=== PATIENT | female | born 1945 | race Caucasian/White ===

== ENCOUNTER 2022-10-16 16:31 | Inpatient (IN) | payer OTHER ==
[~2022-10-16] VITALS: Ht 167.6 cm; Wt 69.9 kg
[2022-10-16 16:31] VITALS: BP_SYST 91
--- NOTE | 2022-10-16 16:31 | NUR ---
Placed in room 02 . Placed on color television console monitor, blood pressure machine and pulse oximeter. To gown for exam. Side rails up. Report given to LIZBETH MORALES
--- NOTE | 2022-10-16 16:40 | NUR ---
PT BIBA AWAKE AND CONFUSED AOX1. [facility]UE TO BEING ALTRERD AND LOW SATURATION AT 88% RA. PT GIVEN NS 1000ML BY PARAMEDICS.
--- NOTE | 2022-10-16 16:42 | NUR ---
ER at bedside examining patient.
--- NOTE | 2022-10-16 16:45 | NUR ---
# 18 gauge angiocath placed to RAC. Use of asceptic technique. Opsite placed over site. Blood return noted. Blood AND CULTURES for lab drawn from site. Flushed with 10 cc of normal saline. No evidence of infiltration noted. Patient tolerated well.
--- NOTE | 2022-10-16 16:50 | NUR ---
MRSA, INFLUENZA AND COVID SWABS OBTAINED AND SENT TO LAB
--- NOTE | 2022-10-16 16:51 | NUR ---
RT AT BEDSIDE FOR ABG.
--- NOTE | 2022-10-16 16:53 | NUR ---
HUMAN SERVICE TECHNICIAN AT BEDSIDE FOR CHEST RAY
--- NOTE | 2022-10-16 17:09 | NUR ---
# 16 FR Mueller catheter with use of sterile technique. Immediate return of 100 cc CLOUDY JOVANNI urine noted. Bedside drainage bag placed below level of bladder. Urine sample collected and sent to lab. Pt tolerated procedure WELL Patient arrived with mueller in place, changed due to standard of practice prior to admission. Patient unable to toilet self.
[2022-10-16 17:12] LABS: BASOPHILS % (AUTO) 0.4 % (0.0-2.0); EOSINOPHILS % (AUTO) 0.1 % (0.0-4.0); LYMPHOCYTES # (AUTO) 0.7 K/uL (1.0-5.5); LYMPHOCYTES % (AUTO) 6.2 % (20.5-51.5); MONOCYTES # (AUTO) 1.3 K/uL (0.0-1.0)
[2022-10-16] MEDS ORDERED: IPRATROPIUM/ALBUTEROL SULFATE 3 ML AMPUL.NEB (DUONEB) INH ONE (17:15)
[2022-10-16 17:25] LABS: CALCIUM 8.1 mg/dL (8.4-11.0); CHLORIDE 94 mmol/L (98-107); CREATININE 1.67 mg/dL (0.55-1.30); GLUCOSE 120 mg/dL (70-99); UREA NITROGEN, BLOOD 55 mg/dL (8-21)
[2022-10-16] MEDS ORDERED: EPOE1VIA13 SQ (17:28)
[2022-10-16] MEDS ORDERED: ALBU2.5V7 INH (17:28)
[2022-10-16] MEDS ORDERED: DIA250 PO (17:28)
[2022-10-16] MEDS ORDERED: DOCU100T10 PO (17:28)
[2022-10-16] MEDS ORDERED: ACET325T39 PO (17:28)
[2022-10-16] MEDS ORDERED: DILT30TA3 PO (17:28)
[2022-10-16] MEDS ORDERED: APIX5TAB PO (17:28)
[2022-10-16 17:30] LABS: INR 1.2 (0.8-1.2)
[2022-10-16 17:32] LABS: BASOPHILS # (AUTO) 0.1 K/uL (0.0-0.2); HEMATOCRIT 37.5 % (36-48); HEMOGLOBIN 11.3 g/dL (12.0-16.0); MEAN CORPUSCULAR HEMOGLOBIN 26 pg (27-31); MEAN CORPUSCULAR HGB CONC 30 % (32-36); MEAN CORPUSCULAR VOLUME 87 fL (79.0-98.0); MONOCYTES % (AUTO) 10.5 % (1.7-9.3); NEUTROPHILS # (AUTO) 9.9 K/uL (1.8-7.7); NEUTROPHILS % (AUTO) 82.8 % (40.0-70.0); PLATELET COUNT (AUTO) 358 K/uL (130-430); RED BLOOD CELL COUNT(AUTO) 4.33 MIL/uL (4.2-6.2); RED CELL DISTRIBUTION WIDTH 24.3 % (9.0-15.0)
[2022-10-16 17:35] LABS: ALANINE AMINOTRANSFERASE 13 U/L (12-78); ALBUMIN 2.1 g/dL (3.4-4.8); ANION GAP 5 (5-15); ASPARTATE AMINOTRANSFERASE 12 U/L (10-37); PHOSPHORUS 5.5 mg/dL (2.7-4.5); TOTAL BILIRUBIN 0.6 mg/dL (0.0-1.0)
[2022-10-16 17:44] LABS: BILIRUBIN,URINE NEGATIVE (NEGATIVE); BLOOD, URINE 3+ (NEGATIVE); CLARITY/URINE CLOUDY (CLEAR); COLOR,URINE YELLOW (YELLOW); GLUCOSE,URINE NEGATIVE (NEGATIVE); KETONES,URINE TRACE (NEGATIVE); LEUKOCYTE ESTERASE ,URINE 2+ (NEGATIVE); NITRITE, URINE POSITIVE (NEGATIVE); PROTEIN URINE 2+ (NEGATIVE)
[2022-10-16] MEDS ORDERED: POTA20LI25 PO (17:54)
[2022-10-16] MEDS ORDERED: METO25TA3 PO (17:54)
[2022-10-16] MEDS ORDERED: MOM PO (17:54)
[2022-10-16 18:12] LABS: BACTERIA,URINE MANY /HPF (None Seen); RBC,URINE >100 /HPF (0-3); URINE AMORPHOUS URATE 2+ /HPF (None Seen); WBC,URINE >100 /HPF (0-3)
[2022-10-16 18:13] LABS: MUCUS,URINE None Seen /LPF (None Seen)
[2022-10-16] MEDS ORDERED: SPIR25TA PO (18:14)
[2022-10-16] MEDS ORDERED: SACU1TAB PO (18:14)
[2022-10-16] MEDS ORDERED: SENN8.6T19 PO (18:14)
--- NOTE | 2022-10-16 18:14 | NUR ---
Medication reconciliation completed with information provided by BRENNEN GAN. Any prior medication reconciliation on file was reviewed and corrected.
[2022-10-16] MEDS ORDERED: VANCOMYCIN HCL 1,000 MG in NS 250 ML IV ONE (18:15)
[2022-10-16] MEDS ORDERED: PIPERACILLIN/TAZO 3.375 GM in NS 50 ML IV ONE (18:15)
[2022-10-16] MEDS ORDERED: NACL 0.9% 1,000 ML IV ONE (19:00)
--- NOTE | 2022-10-16 19:30 | NUR ---
REPORT GIVEN PACHECO, PT STABLE.
--- NOTE | 2022-10-16 19:33 | NUR ---
patient is on bipap resting i bed. son is at bedside. pt is on the monitor
--- NOTE | 2022-10-16 19:46 | NUR ---
Admit bed requested Patient will be admitted to care of . Admitted to ICU unit. Diagnosis SEPSIS AND ACUTE RESPIRATORY FAILURE Inpatient (Yes or No) Y Observation (Yes or No) N Orientation concerns or request close to nursing station (Yes or No) N Covid Status NEG On vent or bipap BIPAP Isolation requirements N Needs a sitter N From Home (Yes or if No enter name of facility) [facility] Requires Dialysis (Yes or No) N Med Rec Completed (Yes of No) Y
[2022-10-16] MEDS ORDERED: VANCOMYCIN HCL 1000 MG/VIAL IV ONE (20:41)
[2022-10-16] MEDS ORDERED: PIPERACILLIN/TAZOBACTAM 3.375 GM/VIAL (ZOSYN) IV ONE (20:58)
[2022-10-16] MEDS ORDERED: CEFEPIME 1 GM in D5W 50 ML IV ONE (21:00)
[2022-10-16] MEDS ORDERED: NOREPINEPHRINE 4 MG/4 ML VIAL IV ONE (21:04)
--- NOTE | 2022-10-16 21:10 | NUR ---
STARTED LEVOPHED 0.1 MCG/KG/MIN FOR BP 78/46 HR 94.
[2022-10-16] MEDS: NOREPINEPHRINE BITARTRATE 4 MG in NS 246 ML IV PRN (21:12)
[2022-10-16 21:34] VITALS: BP_SYST 79
--- NOTE | 2022-10-16 21:42 | NUR ---
ADMIT NOTE Received pt from ER to the floor with a diagnosis of SEPSIS Respiratory failure. Admission process initiated. patient oriented to pain management, safety and call light- verbally Responsive skin dry warm procedures explained chest movement shallow also symmetrical / .
[2022-10-16] MEDS ORDERED: MILK OF MAGNESIA 30 ML UDC PO PRN (22:30)
[2022-10-16] MEDS ORDERED: LevALBUTEROL HCL 1.25 MG/0.5 ML *CONC.* VIAL.NEB (XOPENEX CONC.) INH PRN (22:30)
[2022-10-16] MEDS: D5NS 1,000 ML IV SCH (22:56)
--- NOTE | 2022-10-16 23:17 | NUR ---
DR NAN KUHN here and at the bedside New ORDERS OBTAINED IVF stared as ordered .
--- NOTE | 2022-10-16 23:31 | NUR ---
LEVOPHED IV Drip @ 0.07 mg kg minute BP 117/64 HR 117 02 SAT 96 %
[2022-10-16 23:37] VITALS: BP_SYST 133
[2022-10-17] VITALS (25 sets, daily range): BP systolic 107–136
--- NOTE | 2022-10-17 00:11 | NUR ---
CONSULTATION PAGED/CALLED Reason for Consultation: Respiratory Failure Person Who was Notified: Shanon Consulting Physician: Dr Nair Ground Host/Hostess Specialty: Pulmonary Ordering Physician: Dr Nina
--- NOTE | 2022-10-17 00:18 | NUR ---
CONSULTATION PAGED/CALLED Reason for Consultation: AFib Person Who was Notified: Shanon Consulting Physician: Dr Rosado Primer Inspector Specialty: Cardiology Ordering Physician: Dr Nina
[2022-10-17] MEDS ORDERED: METOPROLOL TARTRATE 5 MG/5 ML VIAL IVP PRN ×2 (00:30→03:30)
[2022-10-17] MEDS ORDERED: IPRATROPIUM/ALBUTEROL SULFATE 3 ML AMPUL.NEB (DUONEB) ONE (00:59)
[2022-10-17] MEDS: LevALBUTEROL HCL 1.25 MG/0.5 ML *CONC.* VIAL.NEB (XOPENEX CONC.) INH SCH ×3 (01:01→14:19)
--- NOTE | 2022-10-17 02:49 | NUR ---
STOOL COLLECTED & SENT TO LAB .
[2022-10-17 05:26] LABS: BASOPHILS % (AUTO) 0.5 % (0.0-2.0); EOSINOPHILS % (AUTO) 0.2 % (0.0-4.0); HEMATOCRIT 35.7 % (36-48); HEMOGLOBIN 11.2 g/dL (12.0-16.0); LYMPHOCYTES # (AUTO) 0.6 K/uL (1.0-5.5); LYMPHOCYTES % (AUTO) 5.8 % (20.5-51.5); MEAN CORPUSCULAR HEMOGLOBIN 27 pg (27-31); MEAN CORPUSCULAR HGB CONC 31 % (32-36); MEAN CORPUSCULAR VOLUME 86 fL (79.0-98.0); MONOCYTES # (AUTO) 1.3 K/uL (0.0-1.0); MONOCYTES % (AUTO) 12.1 % (1.7-9.3); NEUTROPHILS # (AUTO) 8.5 K/uL (1.8-7.7); NEUTROPHILS % (AUTO) 81.4 % (40.0-70.0); PLATELET COUNT (AUTO) 338 K/uL (130-430); RED BLOOD CELL COUNT(AUTO) 4.16 MIL/uL (4.2-6.2); RED CELL DISTRIBUTION WIDTH 23.7 % (9.0-15.0); WHITE BLOOD COUNT (AUTO) 10.4 K/uL (4.8-10.8)
[2022-10-17 06:08] LABS: ANION GAP 5 (5-15); CALCIUM 8.2 mg/dL (8.4-11.0); CHLORIDE 95 mmol/L (98-107); CREATININE 1.25 mg/dL (0.55-1.30); GLUCOSE 131 mg/dL (70-99); UREA NITROGEN, BLOOD 52 mg/dL (8-21)
--- NOTE | 2022-10-17 07:30 | NUR ---
Received pt from [facility] RN with a diagnosis of SEPSIS Respiratory failure. Pt remains on BiPAP 15/7, rate 20, levophed drip @ 0.07, patient oriented to pain management, safety and call light- verbally Responsive skin dry warm procedures explained chest movement shallow also symmetrical
[2022-10-17] MEDS: METOPROLOL SUCCINATE 25 MG TAB.SR.24H (TOPROL XL) PO SCH (07:50)
[2022-10-17] MEDS: SACUBITRIL/VALSARTAN 24 MG-26 MG 1 TABLET PO SCH ×2 (07:50→20:10)
[2022-10-17] MEDS: SPIRONOLACTONE 25 MG TABLET (ALDACTONE) PO SCH (07:50)
[2022-10-17] MEDS: acetaZOLAMIDE 250 MG TABLET (DIAMOX) PO SCH (07:51)
[2022-10-17] MEDS: APIXABAN 2.5 MG TABLET PO SCH ×2 (07:51→20:18)
[2022-10-17] MEDS: DOCUSATE SODIUM 100 MG CAPSULE PO SCH ×2 (07:51→20:09)
[2022-10-17] MEDS: DILTIAZEM HCL 30 MG TABLET PO SCH ×3 (07:51→20:11)
[2022-10-17] MEDS: POTASSIUM CHLORIDE 20 MEQ/PKT PACKET PO SCH (07:58)
[2022-10-17] MEDS: D5NS 1,000 ML IV SCH ×3 (08:15→17:56)
[2022-10-17] MEDS: CEFEPIME 1 GM in D5W 50 ML IV SCH ×2 (08:25→20:09)
[2022-10-17] MEDS: NOREPINEPHRINE BITARTRATE 4 MG in NS 246 ML IV PRN ×2 (09:33→17:57)
[2022-10-17] MEDS ORDERED: FUROSEMIDE 20 MG/2 ML VIAL IVP ONE (15:00)
--- NOTE | 2022-10-17 15:33 | NUR ---
RT NOTES took pt off the bipap to 5L oxymizer to give pt a break per dr's order. Pt is alert, communicating appropriately. educated on O2, deep breathing and plan to put bipap back on after half an hour.
[2022-10-17] MEDS: EPOETIN ALFA 10,000 UNITS/ML VIAL SUBCUT SCH (15:58)
--- NOTE | 2022-10-17 17:16 | NUR ---
RT NOTES Pt back on bipap.
--- NOTE | 2022-10-17 19:15 | NUR ---
change of shift.pt.presents isolation status.contact;mrsa;nares.pt.presents o2 therapy:bi-pap;settings;i/e;17/5,r/r;20, fio2%:40%. o2-sat%=93%.pt.presents picc line location rt.bicept intact;patent.iv fluids/levophed-drip infusing.levophed drip;rate: 0.07mcq/kg/min:rate;18ml/hr.pt.presents mueller cath intact;patent.call light w/in access of thed pt.
--- NOTE | 2022-10-17 20:00 | NUR ---
pt.assessed.v/s assessed values note 02-sat%=94%,h/r wnl.picc line intact.iv fluids/levophed drip infusing.note b/p status wnl.no c/o pain,nausea.pt.had requested removal of bi-pap mask.o2 converted to oximizer.to note o2-sat%.mueller cath intact pt.assessed for cleanliness pt.repositioned.call light placed w/in access of the pt.
[2022-10-17] MEDS: SENNOSIDES 8.6 MG TABLET PO SCH (20:13)
--- NOTE | 2022-10-17 21:00 | NUR ---
2100p medications administered required crushed mixture pudding.pt.capable to ingest the po medications w/out difficulty. bi-pap resumed.note o2-sat%decreased to mid-upper 80's.
--- NOTE | 2022-10-17 22:00 | NUR ---
pt.assessed.v/s assessed values wnl.note h/r,note 02-sat%=100%.picc line intact iv fluids/drip levophed infusing. per flacc pain mgx pt.absent facial grimaces/body posturing.pt.assessed for cleanliness pt.repositioned.call light placed w/in access of the pt.
[2022-10-18] VITALS (25 sets, daily range): BP systolic 101–137
--- NOTE | 2022-10-18 | NUR ---
pt.assessed.v/s assessed values wnl.note 02-sat%=98%.h/r status wnl.picc line intact.iv fluids/drip:levophed infusing,levophed drip rate decreased to 0.04mcq/kg/min.mueller cath intact;patent.per flacc pain mgx pt.absent facial grimaces/body posturing.pt.assessed for cleanliness pt.repositioned.call light placed w/in access of the pt.
--- NOTE | 2022-10-18 02:00 | NUR ---
pt.assessed.v/a assessed values wnl.note h/r status wnl.b/p status wnl.drip levophed d/c.picc line intact iv fluids infusing.mueller cath intact;patent.no c/o pain,nausea.pt.assessed for cleanliness pt.repositioned.call light placed w/in access of the pt.
--- NOTE | 2022-10-18 04:00 | NUR ---
pt.assessed.v/s assessed values wnl.note h/r,b/p status.picc line intact;patent iv fluids infusing.mueller cath intact;patent. per flacc pain mgx pt.absent facial grimace/body posturing.pt.assessed forf cleanliness pt.repositioned.call light placed w/in access of the pt.
[2022-10-18] MEDS: D5NS 1,000 ML IV SCH (04:04)
[2022-10-18 05:13] LABS: BASOPHILS % (AUTO) 0.5 % (0.0-2.0); EOSINOPHILS % (AUTO) 0.6 % (0.0-4.0); HEMATOCRIT 34.2 % (36-48); HEMOGLOBIN 10.5 g/dL (12.0-16.0); LYMPHOCYTES # (AUTO) 0.6 K/uL (1.0-5.5); LYMPHOCYTES % (AUTO) 7.8 % (20.5-51.5); MEAN CORPUSCULAR HEMOGLOBIN 27 pg (27-31); MEAN CORPUSCULAR HGB CONC 31 % (32-36); MEAN CORPUSCULAR VOLUME 86 fL (79.0-98.0); MONOCYTES # (AUTO) 0.9 K/uL (0.0-1.0); MONOCYTES % (AUTO) 11.3 % (1.7-9.3); NEUTROPHILS # (AUTO) 6.3 K/uL (1.8-7.7); NEUTROPHILS % (AUTO) 79.8 % (40.0-70.0); PLATELET COUNT (AUTO) 305 K/uL (130-430); RED BLOOD CELL COUNT(AUTO) 3.97 MIL/uL (4.2-6.2); RED CELL DISTRIBUTION WIDTH 24.1 % (9.0-15.0); WHITE BLOOD COUNT (AUTO) 7.9 K/uL (4.8-10.8)
[2022-10-18] MEDS: LevALBUTEROL HCL 1.25 MG/0.5 ML *CONC.* VIAL.NEB (XOPENEX CONC.) INH SCH ×5 (05:52→19:30)
[2022-10-18 06:01] LABS: ALANINE AMINOTRANSFERASE 14 U/L (12-78); ALBUMIN 1.7 g/dL (3.4-4.8); ANION GAP 0 (5-15); ASPARTATE AMINOTRANSFERASE 22 U/L (10-37); CALCIUM 7.7 mg/dL (8.4-11.0); CHLORIDE 105 mmol/L (98-107); CREATININE 0.71 mg/dL (0.55-1.30); GLUCOSE 117 mg/dL (70-99); THYROID STIMULATING HORMONE 5.29 uIu/mL (0.34-4.82); TOTAL BILIRUBIN 0.4 mg/dL (0.0-1.0); UREA NITROGEN, BLOOD 38 mg/dL (8-21)
--- NOTE | 2022-10-18 06:02 | NUR ---
pt.assessed.v/s assessed values wnl.note h/r,b/p status.no c/o pain,nausea.picc line intact;patent,mueller cath intact;patent. pt.assessed for cleanliness pt.repositioned.call light placed w/in access of the pt.
--- NOTE | 2022-10-18 07:27 | NUR ---
RT NOTES Found pt off bipap, on 8L oxymizer, tachypneic but not distressed.
--- NOTE | 2022-10-18 07:30 | NUR ---
Received pt from [facility] RN with a diagnosis of SEPSIS Respiratory failure. Pt remains on Oximizer at 8L, patient oriented to person, pain management, safety and call light- verbally Responsive skin dry warm procedures explained chest movement shallow also symmetrical
--- NOTE | 2022-10-18 07:45 | NUR ---
RT Noted oximizer, decreased to 5L, ABG at 1000
[2022-10-18] MEDS: DOCUSATE SODIUM 100 MG CAPSULE PO SCH ×2 (08:20→20:21)
[2022-10-18] MEDS: SPIRONOLACTONE 25 MG TABLET (ALDACTONE) PO SCH (08:20)
[2022-10-18] MEDS: DILTIAZEM HCL 30 MG TABLET PO SCH ×3 (08:21→20:21)
[2022-10-18] MEDS: acetaZOLAMIDE 250 MG TABLET (DIAMOX) PO SCH (08:21)
[2022-10-18] MEDS: METOPROLOL SUCCINATE 25 MG TAB.SR.24H (TOPROL XL) PO SCH (08:21)
[2022-10-18] MEDS: POTASSIUM CHLORIDE 20 MEQ/PKT PACKET PO SCH (08:21)
[2022-10-18] MEDS: SACUBITRIL/VALSARTAN 24 MG-26 MG 1 TABLET PO SCH ×2 (08:21→20:21)
[2022-10-18] MEDS: APIXABAN 2.5 MG TABLET PO SCH ×2 (08:22→20:20)
[2022-10-18] MEDS: CEFEPIME 1 GM in D5W 50 ML IV SCH ×2 (08:23→20:17)
--- NOTE | 2022-10-18 09:54 | NUR ---
Dietitian Recommendations * Continue leno, if BACKER UP agreeable * Swallow evaluation * Ordered: Demetris ALBA, MPH, RD Please refer to RD Assessment for further details. Thanks! Addendum: 10/18/22 at [address] Amended: Links added.
--- NOTE | 2022-10-18 10:37 | NUR ---
RT NOTES Per ABG result, pt back on bipap with same settings
--- NOTE | 2022-10-18 11:10 | NUR ---
RT NOTES Per Rn, Dr Nair received ABG results, aware that pt is back on bipap with same settings. Orders for ABG in 3 hours.
--- NOTE | 2022-10-18 12:40 | NUR ---
RT NOTES @1230 per mammography technician, Pt pulled bipap mask off, RN put it back on without difficulties. Pt was reeducated on importance of keep bipap on. Pt appears to understand.
[2022-10-18] MEDS ORDERED: POTASSIUM CHLORIDE 20 MEQ/PKT PACKET PO ONE (12:45)
[2022-10-18] MEDS: KCL 20 mEq in D5NS 1000 mL 1,000 ML IV SCH ×2 (14:38→23:40)
--- NOTE | 2022-10-18 15:15 | NUR ---
RT NOTES RN took pt off bipap and placed on 5L oxymizer. No adverse reactions.
--- NOTE | 2022-10-18 16:32 | NUR ---
RT NOTES Pt remains on 5L oxymizer, just finished swallow eval with speech therapist. No distress noted. pt is awake.
--- NOTE | 2022-10-18 16:50 | NUR ---
ST EVALUATION COMPLETED. ST TX NOT INDICATED AT THIS TIME. RECOMMEND PO DIET OF PUREE AND THIN LIQUIDS. 1:1 SUPERVISION AND FULL ASPIRATION PRECAUTIONS
[2022-10-18] MEDS ORDERED: FUROSEMIDE 20 MG/2 ML VIAL IVP ONE (17:45)
--- NOTE | 2022-10-18 19:00 | NUR ---
Opening notes Received report from endorsing morning shift RN for continuity of care. Patient is lying in bed with IVF D5NS with KCL 20mEq @ 100 mL/hr. Patient's vital signs blood pressure 117/48, heart rate 90, respirations 32, and SPO2 91% on 5L oxymizer. Leyva catheter is in place draining to gravity. Bed is locked and in lowest position, fall and safety precautions is in place.
[2022-10-18] MEDS: SENNOSIDES 8.6 MG TABLET PO SCH (20:21)
--- NOTE | 2022-10-18 21:16 | NUR ---
pt not tolerating BI-PAP, RECIEVED CALL FROM RN, PT ON ROOM AIR WHEN I ENTERED THE ROOM SATURATING 85%, PLACED PT BACK ON 5L OXIMIZER FOR PT COMFORT. PT IS TOLERATING THE CHANGE SATURATION MAINTAINING AT 90% OR ABOVE, WILL CONTINUE TO MONITOR
[2022-10-19] VITALS (23 sets, daily range): BP systolic 99–143
[2022-10-19] MEDS: LevALBUTEROL HCL 1.25 MG/0.5 ML *CONC.* VIAL.NEB (XOPENEX CONC.) INH SCH ×2 (01:18→19:00)
[2022-10-19 05:00] LABS: HEMOGLOBIN 11.1 g/dL (12.0-16.0); MEAN CORPUSCULAR HEMOGLOBIN 27 pg (27-31); MEAN CORPUSCULAR HGB CONC 31 % (32-36); MEAN CORPUSCULAR VOLUME 89 fL (79.0-98.0); PLATELET COUNT (AUTO) 348 K/uL (130-430); RED BLOOD CELL COUNT(AUTO) 4.06 MIL/uL (4.2-6.2); RED CELL DISTRIBUTION WIDTH 24.7 % (9.0-15.0)
[2022-10-19 05:26] LABS: ALANINE AMINOTRANSFERASE 14 U/L (12-78); ALBUMIN 1.7 g/dL (3.4-4.8); ANION GAP 4 (5-15); ASPARTATE AMINOTRANSFERASE 22 U/L (10-37); CALCIUM 8.1 mg/dL (8.4-11.0); CHLORIDE 109 mmol/L (98-107); CREATININE 0.79 mg/dL (0.55-1.30); GLUCOSE 141 mg/dL (70-99); TOTAL BILIRUBIN 0.2 mg/dL (0.0-1.0); UREA NITROGEN, BLOOD 32 mg/dL (8-21)
--- NOTE | 2022-10-19 05:34 | NUR ---
RT NOTES ATTEMPTED 0550 ORDERED ABG, UNABLE TO OBTAIN, WILL HAVE ONCOMING RT ATTEMPT
--- NOTE | 2022-10-19 05:35 | NUR ---
RT NOTES PER PT REQUEST REMOVED BI-PAP, PLACED PT ON A 5L OXIMIZER, PT IS TOLERATING WELL
--- NOTE | 2022-10-19 08:11 | NUR ---
SPOKE WITH ROSA REQUESTING ORDERS FROM DR. CHAVES FOR CRITICAL ABG RESULTS.
[2022-10-19] MEDS: CEFEPIME 1 GM in D5W 50 ML IV SCH ×2 (08:46→20:25)
[2022-10-19] MEDS: KCL 20 mEq in D5NS 1000 mL 1,000 ML IV SCH ×2 (08:49→20:24)
[2022-10-19] MEDS ORDERED: FUROSEMIDE 20 MG/2 ML VIAL IVP SCH (09:00)
[2022-10-19] MEDS: SPIRONOLACTONE 25 MG TABLET (ALDACTONE) PO SCH (09:30)
[2022-10-19] MEDS: acetaZOLAMIDE 250 MG TABLET (DIAMOX) PO SCH (09:30)
[2022-10-19] MEDS: DOCUSATE SODIUM 100 MG CAPSULE PO SCH ×2 (09:30→21:00)
[2022-10-19] MEDS: DILTIAZEM HCL 30 MG TABLET PO SCH ×3 (09:31→21:00)
[2022-10-19] MEDS: APIXABAN 2.5 MG TABLET PO SCH ×2 (09:32→21:00)
[2022-10-19] MEDS: METOPROLOL SUCCINATE 25 MG TAB.SR.24H (TOPROL XL) PO SCH (09:33)
[2022-10-19] MEDS: SACUBITRIL/VALSARTAN 24 MG-26 MG 1 TABLET PO SCH ×2 (09:33→21:00)
[2022-10-19] MEDS: POTASSIUM CHLORIDE 20 MEQ/PKT PACKET PO SCH (11:30)
[2022-10-19 13:18] LABS: BAND % (MANUAL) 1 % (0-6); BASOPHILS % (MANUAL) 0 % (0-2); EOSINOPHILS % (MANUAL) 0 % (0-7); LYMPHOCYTES % (MANUAL) 9 % (20-46); MONOCYTES % (MANUAL) 4 % (0-11)
[2022-10-19] MEDS: ALBUMIN HUMAN 25% 50 ML IV SCH ×3 (15:11→23:58)
--- NOTE | 2022-10-19 15:13 | NUR ---
SPOKE WITH PRAMOD REQUESTING ORDERS FROM DR. CHAVES
--- NOTE | 2022-10-19 16:58 | NUR ---
SPOKE WITH JASPER REQUESTING ORDERS FROM DR. SINGER, WAS TOLD DR. STALLINGS.
--- NOTE | 2022-10-19 17:10 | NUR ---
1700 PATIENT'S FAMILY AT BEDSIDE CONCERNED OF PATIENTS NUTRITION AND PAIN MANAGEMENT. FOLLOWED UP WITH DR. TERRELL. NEW ORDERS PLACED.
[2022-10-19] MEDS: EPOETIN ALFA 10,000 UNITS/ML VIAL SUBCUT SCH (17:14)
[2022-10-19] MEDS ORDERED: NALOXONE HCL 0.4 MG/ML AMP (NARCAN) IVP PRN (17:15)
[2022-10-19] MEDS ORDERED: *TPN PER PHARMACY XX PRN (17:15)
[2022-10-19] MEDS: MORPHINE 2 MG/ML INJ. SYRINGE IVP PRN ×2 (17:21→20:27)
[2022-10-19] MEDS: FUROSEMIDE 20 MG/2 ML VIAL IVP SCH (20:25)
[2022-10-19] MEDS: SENNOSIDES 8.6 MG TABLET PO SCH (21:00)
[2022-10-20] VITALS (24 sets, daily range): BP systolic 108–162
[2022-10-20] MEDS: LevALBUTEROL HCL 1.25 MG/0.5 ML *CONC.* VIAL.NEB (XOPENEX CONC.) INH SCH ×4 (02:29→19:14)
[2022-10-20 05:04] LABS: HEMOGLOBIN 10.1 g/dL (12.0-16.0); MEAN CORPUSCULAR HEMOGLOBIN 27 pg (27-31); MEAN CORPUSCULAR HGB CONC 31 % (32-36); MEAN CORPUSCULAR VOLUME 89 fL (79.0-98.0); PLATELET COUNT (AUTO) 286 K/uL (130-430); RED BLOOD CELL COUNT(AUTO) 3.71 MIL/uL (4.2-6.2); WHITE BLOOD COUNT (AUTO) 6.4 K/uL (4.8-10.8)
[2022-10-20 05:24] LABS: ALANINE AMINOTRANSFERASE 16 U/L (12-78); ALBUMIN 2.3 g/dL (3.4-4.8); ANION GAP 4 (5-15); ASPARTATE AMINOTRANSFERASE 14 U/L (10-37); CALCIUM 7.9 mg/dL (8.4-11.0); CHLORIDE 113 mmol/L (98-107); CREATININE 0.66 mg/dL (0.55-1.30); GLUCOSE 118 mg/dL (70-99); PHOSPHORUS 1.9 mg/dL (2.7-4.5); TOTAL BILIRUBIN 0.4 mg/dL (0.0-1.0); UREA NITROGEN, BLOOD 26 mg/dL (8-21)
[2022-10-20 06:05] LABS: BASOPHILS % (MANUAL) 0 % (0-2); EOSINOPHILS % (MANUAL) 1 % (0-7); LYMPHOCYTES % (MANUAL) 20 % (20-46); MONOCYTES % (MANUAL) 0 % (0-11)
[2022-10-20 06:24] LABS: TRIGLYCERIDES 54 mg/dL (30-150)
[2022-10-20] MEDS: KCL 20 mEq in D5NS 1000 mL 1,000 ML IV SCH (06:36)
--- NOTE | 2022-10-20 06:37 | NUR ---
End of Shift Note: No acute overnight issues or events. GCS 15, follows commands, very weak and in generalized pain when move pt to reposition in bed. Pt tolerated bipap very well overnight satting 90-94% SpO2, and other than that pt rested and slept throughout the night. HR in 80-90s all night. Will continue to monitor. 0700: Reports given to the day shift for continuity of care.
--- NOTE | 2022-10-20 09:23 | NUR ---
rt notes [id number] tried pt off avaps, placed on 10l oxymizer. pt tachypniec and desats. pt claims to have difficulty breathing.placed back to avaps. rrdown to 20 sat92. hr120. rn aware, will cont to monitor. Addendum: 10/20/22 at 0926 by Tsering Montalvo RT Amended: Links added.
[2022-10-20] MEDS: CEFEPIME 1 GM in D5W 50 ML IV SCH ×2 (09:48→20:57)
[2022-10-20] MEDS: FUROSEMIDE 20 MG/2 ML VIAL IVP SCH ×2 (09:49→20:58)
[2022-10-20] MEDS: SPIRONOLACTONE 25 MG TABLET (ALDACTONE) PO SCH (09:51)
[2022-10-20] MEDS: DILTIAZEM HCL 30 MG TABLET PO SCH ×3 (09:51→20:59)
[2022-10-20] MEDS: acetaZOLAMIDE 250 MG TABLET (DIAMOX) PO SCH (09:52)
[2022-10-20] MEDS: DOCUSATE SODIUM 100 MG CAPSULE PO SCH ×2 (09:52→21:01)
[2022-10-20] MEDS: METOPROLOL SUCCINATE 25 MG TAB.SR.24H (TOPROL XL) PO SCH (09:53)
[2022-10-20] MEDS: POTASSIUM CHLORIDE 20 MEQ/PKT PACKET PO SCH (09:53)
[2022-10-20] MEDS: SACUBITRIL/VALSARTAN 24 MG-26 MG 1 TABLET PO SCH ×2 (09:54→20:59)
[2022-10-20] MEDS: APIXABAN 2.5 MG TABLET PO SCH ×2 (09:59→20:59)
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
--- NOTE | 2022-10-20 11:08 | NUR ---
Dietitian Recommendations *Continue puree diet, Demetris BID *Encourage PO intake as much as possible, to keep the gut functioning well *Consider appetite stimulant if pt agreeable *Initiate TPN, if medically appropriate --D40, AA8.5% @ 60 (goal) & 20% ILE @10mL/hr via PICC line Provides: 1704 kcal, 61g PRO, total volume: 1680mL; GIR:2.9 mg/kg/min Meets: 97% of lower est kcal, 79% of upper est PRO, 99% of lower est fluid needs GS, MPH, RD Please refer to Nutrition F/U for further details. Thanks!
[2022-10-20] MEDS: MORPHINE 2 MG/ML INJ. SYRINGE IVP PRN ×2 (14:29→22:42)
--- NOTE | 2022-10-20 15:18 | NUR ---
rt notes 1505 pt placed back on avaps, due to desaturation. pt sat up to 94%. rn aware, will cont to monitor. Addendum: 10/20/22 at 1520 by Tsering Montalvo RT Amended: Links added.
[2022-10-20] MEDS: FAT EMULSIONS 250 ML IV SCH (20:57)
[2022-10-20] MEDS: SENNOSIDES 8.6 MG TABLET PO SCH (20:58)
[2022-10-20] MEDS ORDERED: MVI IV SCH ×6 (21:00)
[2022-10-20] MEDS ORDERED: NA PHOS IV SCH ×6 (21:00)
[2022-10-20] MEDS ORDERED: TRACE ELEMENTS IV SCH ×6 (21:00)
[2022-10-20] MEDS ORDERED: [UNRECOGNIZED DRUG - OTHER] IV SCH ×6 (21:00)
[2022-10-20] MEDS ORDERED: TPN CENTRAL IV SCH ×6 (21:00)
[2022-10-20] MEDS ORDERED: KCL 20 mEq in D5NS 1000 mL 1,000 ML IV SCH (21:00)
[2022-10-20] MEDS ORDERED: DEXTROSE 50% JECT 50 ML DISP.SYRIN ONE (21:30)
[2022-10-20] MEDS ORDERED: INSULIN REGULAR, HUMAN 100 UNITS/ML, 3 ML VIAL (humuLIN R) SUBCUT PRN (23:35)
[2022-10-20] MEDS ORDERED: D5W 1,000 ML IV PRN (23:35)
[2022-10-20] MEDS ORDERED: GLUCOSE (DEXTROSE) ORAL GEL -Adults PO PRN (23:35)
[2022-10-20] MEDS ORDERED: DEXTROSE 50% JECT 50 ML DISP.SYRIN IVP PRN (23:35)
[2022-10-21] VITALS (18 sets, daily range): BP systolic 92–159
[2022-10-21] MEDS: D10W 1,000 ML IV SCH ×2 (00:07→21:10)
[2022-10-21] MEDS: LevALBUTEROL HCL 1.25 MG/0.5 ML *CONC.* VIAL.NEB (XOPENEX CONC.) INH SCH ×4 (01:27→20:20)
[2022-10-21 05:29] LABS: HEMOGLOBIN 10.4 g/dL (12.0-16.0); MEAN CORPUSCULAR HEMOGLOBIN 27 pg (27-31); MEAN CORPUSCULAR HGB CONC 31 % (32-36); MEAN CORPUSCULAR VOLUME 88 fL (79.0-98.0); PLATELET COUNT (AUTO) 295 K/uL (130-430); RED BLOOD CELL COUNT(AUTO) 3.88 MIL/uL (4.2-6.2); RED CELL DISTRIBUTION WIDTH 24.5 % (9.0-15.0); WHITE BLOOD COUNT (AUTO) 7.3 K/uL (4.8-10.8)
[2022-10-21 06:00] LABS: ALANINE AMINOTRANSFERASE 13 U/L (12-78); ALBUMIN 2.2 g/dL (3.4-4.8); ANION GAP 4 (5-15); ASPARTATE AMINOTRANSFERASE 14 U/L (10-37); CALCIUM 8.4 mg/dL (8.4-11.0); CHLORIDE 110 mmol/L (98-107); CREATININE 0.67 mg/dL (0.55-1.30); GLUCOSE 133 mg/dL (70-99); TOTAL BILIRUBIN 0.5 mg/dL (0.0-1.0); UREA NITROGEN, BLOOD 24 mg/dL (8-21)
[2022-10-21 06:30] LABS: BAND % (MANUAL) 1 % (0-6); LYMPHOCYTES % (MANUAL) 17 % (20-46)
[2022-10-21 06:31] LABS: BASOPHILS % (MANUAL) 0 % (0-2); EOSINOPHILS % (MANUAL) 1 % (0-7); MONOCYTES % (MANUAL) 2 % (0-11)
[2022-10-21 08:33] LABS: PHOSPHORUS 1.1 mg/dL (2.7-4.5)
[2022-10-21] MEDS: DOCUSATE SODIUM 100 MG CAPSULE PO SCH ×2 (10:15→20:48)
[2022-10-21] MEDS: DILTIAZEM HCL 30 MG TABLET PO SCH ×3 (10:16→20:51)
[2022-10-21] MEDS: SPIRONOLACTONE 25 MG TABLET (ALDACTONE) PO SCH (10:17)
[2022-10-21] MEDS: FUROSEMIDE 20 MG/2 ML VIAL IVP SCH ×2 (10:18→20:48)
[2022-10-21] MEDS: METOPROLOL SUCCINATE 25 MG TAB.SR.24H (TOPROL XL) PO SCH (10:18)
[2022-10-21] MEDS: APIXABAN 2.5 MG TABLET PO SCH ×2 (10:19→21:05)
[2022-10-21] MEDS: POTASSIUM CHLORIDE 20 MEQ/PKT PACKET PO SCH (10:20)
[2022-10-21] MEDS: acetaZOLAMIDE 250 MG TABLET (DIAMOX) PO SCH (10:20)
[2022-10-21] MEDS: CEFEPIME 1 GM in D5W 50 ML IV SCH ×2 (10:21→20:44)
[2022-10-21] MEDS: SACUBITRIL/VALSARTAN 24 MG-26 MG 1 TABLET PO SCH ×2 (10:21→20:47)
--- NOTE | 2022-10-21 14:24 | NUR ---
Patient has been resting throughout the day. Initially, patient was on AVAPS, now on Oxymizer, patient was somewhat in pain and anxious. Morphine given and patient's respiratory status improved. Patient eating lightly, took one ensure this morning and slight breakfast fed to patient by student nurse. No issues for patient at this time.
[2022-10-21] MEDS: MORPHINE 2 MG/ML INJ. SYRINGE IVP PRN ×2 (17:21→18:13)
--- NOTE | 2022-10-21 20:30 | NUR ---
End of Shift Summary: Patient has been stable this afternoon. Took patient to CT scanner in PM and she indicated much pain. Otherwise, once returned, patient was given morphine and within 30 minutes all vitals returned to reasonable levels and no issues present at end of shift.
[2022-10-21] MEDS: FAT EMULSIONS 250 ML IV SCH (20:43)
[2022-10-21] MEDS: SENNOSIDES 8.6 MG TABLET PO SCH (20:48)
[2022-10-21] MEDS ORDERED: TRACE ELEMENTS IV SCH ×6 (21:00)
[2022-10-21] MEDS ORDERED: [UNRECOGNIZED DRUG - OTHER] IV SCH ×6 (21:00)
[2022-10-21] MEDS ORDERED: TPN CENTRAL IV SCH ×6 (21:00)
[2022-10-21] MEDS ORDERED: NA PHOS IV SCH ×6 (21:00)
[2022-10-21] MEDS ORDERED: MVI IV SCH ×6 (21:00)
[2022-10-22] VITALS (25 sets, daily range): BP systolic 101–131
[2022-10-22] MEDS: LevALBUTEROL HCL 1.25 MG/0.5 ML *CONC.* VIAL.NEB (XOPENEX CONC.) INH SCH ×3 (02:17→20:30)
[2022-10-22 06:18] LABS: BASOPHILS # (AUTO) 0.1 K/uL (0.0-0.2); BASOPHILS % (AUTO) 0.8 % (0.0-2.0); EOSINOPHILS # (AUTO) 0.2 K/uL (0.0-0.4); EOSINOPHILS % (AUTO) 2.4 % (0.0-4.0); HEMATOCRIT 32.4 % (36-48); HEMOGLOBIN 9.8 g/dL (12.0-16.0); LYMPHOCYTES # (AUTO) 0.8 K/uL (1.0-5.5); LYMPHOCYTES % (AUTO) 11.2 % (20.5-51.5); MEAN CORPUSCULAR HEMOGLOBIN 27 pg (27-31); MEAN CORPUSCULAR HGB CONC 30 % (32-36); MEAN CORPUSCULAR VOLUME 90 fL (79.0-98.0); MONOCYTES # (AUTO) 1.1 K/uL (0.0-1.0); MONOCYTES % (AUTO) 16.6 % (1.7-9.3); NEUTROPHILS # (AUTO) 4.7 K/uL (1.8-7.7); PLATELET COUNT (AUTO) 239 K/uL (130-430); RED CELL DISTRIBUTION WIDTH 24.5 % (9.0-15.0); WHITE BLOOD COUNT (AUTO) 6.8 K/uL (4.8-10.8)
[2022-10-22 07:03] LABS: ALANINE AMINOTRANSFERASE 11 U/L (12-78); ALBUMIN 1.8 g/dL (3.4-4.8); ANION GAP 4 (5-15); ASPARTATE AMINOTRANSFERASE 17 U/L (10-37); CHLORIDE 109 mmol/L (98-107); CREATININE 0.94 mg/dL (0.55-1.30); GLUCOSE 125 mg/dL (70-99); PHOSPHORUS 2.5 mg/dL (2.7-4.5); TOTAL BILIRUBIN 0.3 mg/dL (0.0-1.0); UREA NITROGEN, BLOOD 28 mg/dL (8-21)
--- NOTE | 2022-10-22 07:40 | NUR ---
MD TERRELL AT BEDSIDE FOR ASSESS, CARDIOLOGY. OK TO REMOVE BIPAP AND PLACE PT ON 5LPM OXYMIZER. PT TOLERATING WELL. PER MD TERRELL, GOAL SPO2 > 90%. MD UPDATED ON POOR ORAL INTAKE DUE TO DIFFICULTY SWALLOWING. SWALLOW EVAL ORDERED FOR TODAY. PT VSS. NAD NOTED. PER MD TERRELL, PT NEEDS THORACENTESIS ON LEFT SIDE FOR PLEURAL EFFUSION, MD TO ORDER, IR TO BE NOTIFIED ONCE ORDERED. WILL CONT TO MONITOR PT.
--- NOTE | 2022-10-22 08:15 | NUR ---
PT PLACED BACK ON BIPAP PER RT MARIIA, PER MD ANASTACIO WILSON, WANTS PT ON BIPAP UNTIL 9AM AND REPEAT ABG.
[2022-10-22] MEDS: acetaZOLAMIDE 250 MG TABLET (DIAMOX) PO SCH ×2 (08:16→09:00)
[2022-10-22] MEDS: CEFEPIME 1 GM in D5W 50 ML IV SCH (08:16)
[2022-10-22] MEDS: SPIRONOLACTONE 25 MG TABLET (ALDACTONE) PO SCH ×2 (08:18→09:00)
[2022-10-22] MEDS: FUROSEMIDE 20 MG/2 ML VIAL IVP SCH ×2 (08:18→21:19)
[2022-10-22] MEDS: DOCUSATE SODIUM 100 MG CAPSULE PO SCH ×3 (08:19→21:19)
[2022-10-22] MEDS: DILTIAZEM HCL 30 MG TABLET PO SCH ×4 (08:19→21:20)
[2022-10-22] MEDS: APIXABAN 2.5 MG TABLET PO SCH ×3 (08:23→19:22)
[2022-10-22] MEDS: METOPROLOL SUCCINATE 25 MG TAB.SR.24H (TOPROL XL) PO SCH ×2 (08:24→09:00)
[2022-10-22] MEDS: POTASSIUM CHLORIDE 20 MEQ/PKT PACKET PO SCH ×2 (08:24→09:00)
[2022-10-22] MEDS: SACUBITRIL/VALSARTAN 24 MG-26 MG 1 TABLET PO SCH ×3 (08:24→21:20)
--- NOTE | 2022-10-22 09:06 | NUR ---
PER PHARMACY DURING ROUNDS, PT ON CEFEPIME ABX, DOES NOT COVER OR TREAT ESBL URINE. UPON REVIEW OF CHART, MD GRAY NOT CONSULTED OR ON CASE. MD HAMMOND'S EXCHANGE PAGED FOR NEW CONSULT.
--- NOTE | 2022-10-22 09:15 | NUR ---
PT OFF OF BIPAP BY RT MARIIA, PLACED ON OXYMIZER 6LPM. PT NODS YES AND NO, UNABLE TO FOLLOW COMMANDS TO SWALLOW WITH NOTHING GIVEN ORALLY, GIVEN ONE SMALL ICE CHIP, WATER DRIPPED OUT FROM BETWEEN LIPS, ICE CHIP REMOVED. PT NOT GIVEN ANY ORAL MEDS, TO BE MADE NPO UNTIL SWALLOW EVAL LATER TODAY.
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
--- NOTE | 2022-10-22 10:02 | NUR ---
Dietitian Recommendations *Continue TPN --D40, AA8.5% @ 60 (goal) & 20% ILE @10mL/hr via PICC line Provides: 1704 kcal, 61g PRO, total volume: 1680mL; GIR:2.9 mg/kg/min Meets: 97% of lower est kcal, 79% of upper est PRO, 99% of lower est fluid needs *Advance diet if/when pt passes swallow eval *Encourage PO intake as much as possible, to keep the gut functioning well *Consider appetite stimulant if pt agreeable GS, MPH, RD Please refer to Nutrition F/U for further details. Thanks!
--- NOTE | 2022-10-22 10:15 | NUR ---
YULISA GRAY SECOND ATTEMPT FOR ID CONSULT AND ABX CHANGE FOR ESBL URINE AND MRSA NARES.
--- NOTE | 2022-10-22 10:35 | NUR ---
YULISA CHAVES FOR ABG RESULTS PROVIDED BY MARIIA HALE
--- NOTE | 2022-10-22 11:10 | NUR ---
PAGED MD CHAVES SECOND ATTEMPT TO NOTIFY ABOUT NEW ABG RESULTS.
--- NOTE | 2022-10-22 12:00 | NUR ---
YULISA TERRELL FOR ORDERS. PT UNABLE TO TOLERATE PO MEDS, EVEN CRUSHED. PT PLACED NPO UNTIL SWALLOW EVAL LATER TODAY. PT HAVING SOME UNCONTROLLED ATRIAL FIBRILLATION RANGING FROM 110S-130S. RECEIVED TELEPHONE ORDER FOR LOPRESSOR 2.5MG IVP Q4H PRN FOR HR >110. RECEIVED WITH VERBAL READBACK.
[2022-10-22] MEDS ORDERED: METOPROLOL TARTRATE 5 MG/5 ML VIAL IVP PRN (12:15)
--- NOTE | 2022-10-22 12:40 | NUR ---
CALL BACK RECEIVED FROM MD GRAY. RECEIVED TELEPHONE ORDER FOR ERTAPENEM 1GRAM QDAILY FOR ESBL URINE SINCE CREATININE IS 0.94 AND WITHIN RANGE PER MD GRAY. ALSO, TELEPHONE ORDER RECEIVED OK TO D/C CEFEPIME. MD TO SEE PT THIS AFTERNOON FOR NEW CONSULT AND REVIEW OF CHART AND ASSESS.
[2022-10-22 13:22] LABS: INR 1.2 (0.8-1.2); PROTHROMBIN TIME 11.8 SECS (9.5-12.5)
[2022-10-22] MEDS: ERTAPENEM SODIUM 1 GM in NS 50 ML IV SCH (13:51)
[2022-10-22] MEDS: D10W 1,000 ML IV SCH ×2 (15:45→21:31)
--- NOTE | 2022-10-22 16:53 | NUR ---
ST EVALUATION COMPLETED. ST TX NOT INDICATED AT THIS TIME. PT PRESENTS WITH POOR SWALLOW FUNCTION AND SAFETY. RECOMMEND NPO WITH ALTERNATIVE MEANS OF NUTRITION.
[2022-10-22] MEDS: EPOETIN ALFA 10,000 UNITS/ML VIAL SUBCUT SCH (17:11)
--- NOTE | 2022-10-22 19:50 | NUR ---
Pt is noted in bed responsive but confused as she is DNR , call light in reach , Aspiration , Isolation and fall precaution in place as report is received from tire inspector Nurse. Essie.FIB on the Tele monitor with Cardizem PO but ElIQUIS on hold due to possible Thoracenteses in AM, Diminished Lungs sound, BiPAP therapy with setting at AVAP 20, 450, 30% and 5, Skin dry, warm but skin areas noted, please see skin assessment in chart. Pt is noted with a Leyva Cath, Right upper PICC Line with TPN at 50ML, FAT at 10ML, IVF D10W at 50ML. Pt care continue as she will be monitor closely for any S/S off distress or change in conditions during the shift.
[2022-10-22] MEDS: SENNOSIDES 8.6 MG TABLET PO SCH (21:19)
[2022-10-22] MEDS: FAT EMULSIONS 250 ML IV SCH (21:21)
[2022-10-22] MEDS: [UNRECOGNIZED DRUG - OTHER] IV SCH ×6 (21:22)
[2022-10-22] MEDS: TPN CENTRAL IV SCH ×6 (21:22)
[2022-10-22] MEDS: NA PHOS IV SCH ×6 (21:22)
[2022-10-22] MEDS: TRACE ELEMENTS IV SCH ×6 (21:22)
[2022-10-22] MEDS: MVI IV SCH ×6 (21:22)
[2022-10-23] VITALS (23 sets, daily range): BP systolic 106–147
--- NOTE | 2022-10-23 00:42 | NUR ---
Pt remain on BiPAP, DNR and NPO with TPN and FAT with IVF infusing as ordered while monitor closely for any S/S off distress. Pt care continue as she is been turn and reposition Q2HRS for comfort.
[2022-10-23] MEDS: LevALBUTEROL HCL 1.25 MG/0.5 ML *CONC.* VIAL.NEB (XOPENEX CONC.) INH SCH ×4 (01:40→20:03)
--- NOTE | 2022-10-23 04:38 | NUR ---
Pt is sleeping after AM and wound care done as she remain forgetful with call light in reach and fall with Isolations therapy in progress. Pt care continue as she is been monitor closely while NPO with TPN and FAT therapy in progress.
[2022-10-23 06:47] LABS: ALANINE AMINOTRANSFERASE 16 U/L (12-78); ALBUMIN 1.9 g/dL (3.4-4.8); ANION GAP 1 (5-15); ASPARTATE AMINOTRANSFERASE 20 U/L (10-37); CALCIUM 7.9 mg/dL (8.4-11.0); CHLORIDE 103 mmol/L (98-107); CREATININE 0.94 mg/dL (0.55-1.30); GLUCOSE 140 mg/dL (70-99); PHOSPHORUS 2.9 mg/dL (2.7-4.5); TOTAL BILIRUBIN 0.4 mg/dL (0.0-1.0); UREA NITROGEN, BLOOD 33 mg/dL (8-21)
--- NOTE | 2022-10-23 07:11 | NUR ---
Pt care continue as report is given to the AM receiving nurse.
[2022-10-23] MEDS: FUROSEMIDE 20 MG/2 ML VIAL IVP SCH ×2 (08:15→21:02)
--- NOTE | 2022-10-23 08:20 | NUR ---
RT NOTES Despite HHN tx and attempted HFNC 40L, pt remains tachypneic and tachycardic. Placed on AVAPS, improvement noted. Pt was re-educated on bipap and keeping mask on. RN aware.
--- NOTE | 2022-10-23 08:34 | NUR ---
DR. TERRELL AT BEDSIDE PATIENT AWAKE, ORDER FOR SWALLOW EVAL.
[2022-10-23] MEDS: SPIRONOLACTONE 25 MG TABLET (ALDACTONE) PO SCH (09:00)
[2022-10-23] MEDS: POTASSIUM CHLORIDE 20 MEQ/PKT PACKET PO SCH (09:00)
[2022-10-23] MEDS: DOCUSATE SODIUM 100 MG CAPSULE PO SCH ×2 (09:00→20:55)
[2022-10-23] MEDS: acetaZOLAMIDE 250 MG TABLET (DIAMOX) PO SCH (09:00)
[2022-10-23] MEDS: METOPROLOL SUCCINATE 25 MG TAB.SR.24H (TOPROL XL) PO SCH (09:00)
[2022-10-23] MEDS: SACUBITRIL/VALSARTAN 24 MG-26 MG 1 TABLET PO SCH ×2 (09:00→20:55)
[2022-10-23] MEDS: DILTIAZEM HCL 30 MG TABLET PO SCH ×3 (09:00→20:54)
--- NOTE | 2022-10-23 09:19 | NUR ---
Swallow mitchell called and message left.
--- NOTE | 2022-10-23 09:47 | NUR ---
PROCEDURE TIME OUT FOR THORACENTESIS LEFT SIDE [address] OZZY MIRAMONTES RADIOLOGIST PERFORMED. 1.5 LITERS OF SEROUS FLUID FROM THORACIC CAVITY.
--- NOTE | 2022-10-23 10:20 | NUR ---
10 AM THORACENTESIS FLUID DELIVERED TO LAB FOR PATHOLOGY. SUSANA FROM LAB RECEIVED SPECIMEN.
--- NOTE | 2022-10-23 11:25 | NUR ---
RT NOTES RR improved, took pt off bipap and placed on 4L oxymizer. Pt was reeducated on O2 and deep-breathing exercises.
--- NOTE | 2022-10-23 12:16 | NUR ---
RT NOTES Pt pulled O2 off, sat 87-88%, pt was re-educated on importance of keep O2 on.
--- NOTE | 2022-10-23 12:50 | NUR ---
RT NOTES Pt is tachypneic, low sat. attempted to placed on HFNC, dr Nair walked in, orders to put pt back on AVAPS.
--- NOTE | 2022-10-23 12:50 | NUR ---
1250 DR. CHAVES AT BEDSIDE D/C DEXTROSE 10%, NORMAL SALINE TKO AT 5ML/HR.
[2022-10-23] MEDS: ERTAPENEM SODIUM 1 GM in NS 50 ML IV SCH (13:05)
--- NOTE | 2022-10-23 14:15 | NUR ---
Per family, pt is c/o pain to her buttocks and generalized. medicated with Morphine 1mg IVP as ordered. Wound care done with Partha. PT repositioned. PT has a DTI to sacral area and a small skin tear. z guard applied and covered with a foam dressing. Bilateraly haels pink and covered with a foam dressing.
[2022-10-23 14:35] LABS: BF APPEARANCE UNSPUN SLIGHTLY HAZY (CLEAR); BODY FLUID SOURCE/ TYPE PLEURAL; SOURCE/TYPE ,BODY FLUID THORACENTESIS
[2022-10-23 14:36] LABS: APPEARANCE,SPUN,BODY FLUID CLEAR (CLEAR); BODY FLUID COLOR YELLOW (LT YELLOW); BODY FLUID TOTAL VOLUME 1025 mL; EOSINOPHIL, BODY FLUID 1 %; LYMPHOCYTES, BODY FLUID 64 %; MONOCYTES,BODY FLUID 20 %; NEUTROPHIL, BODY FLUID 15 %; RBC, BODY FLUID 1273 /uL; WBC, BODY FLUID 107 /uL
--- NOTE | 2022-10-23 14:38 | NUR ---
Family here and talks to Dr. Rosado on the phone. All questions answered. He spoke with the pts sister because both the brother and sister wanted to talk to him on speaker phone and they couldn't hear him, so he called back and asked to speak with the pts daughter. Family also wants to talk to all the doctors on the case.
[2022-10-23] MEDS: MORPHINE 2 MG/ML INJ. SYRINGE IVP PRN (14:42)
--- NOTE | 2022-10-23 14:50 | NUR ---
WOUND EVALUATION: Late note for 10/23/2022 at 1450 secondary to patient care. Wound Consult received from Dr. Nina. Thank you, Dr. Nina, for the consult. Patient received in a German Bed with an Isoflex REINALDO mattress with low air loss therapy initiated, awake, alert, confused. Patient is unable to turn in bed independently. Grover Score is an 11. Past Medical History: Paroxysmal Atrial Fibrillation, CHF, Chronic Anemia, Chronic Kidney Disease. Presented to the Emergency Room with Acute Respiratory Failure, Hypertension, Septic Shock. Recent Labs: WBC 6.8, RBC 3.60, hemoglobin 9.8, hematocrit 32.4, BUN 33, creatinine 0.94, glucose 140, POC glucose 131, calcium 7.9, serum total protein 6.1, albumin 1.9. Microbiology: Body fluid culture results in progress. Stool OB results positive x2. MRSA screen results positive. Blood culture results x2 negative. Urine culture positive for E. coli (ESBL/MDRO). Intrinsic factors that delay wound healing: Paroxysmal Atrial Fibrillation, CHF, Chronic Anemia, Chronic Kidney Disease, severe Hypoalbuminemia. Extrinsic factors that delay wound healing: Immobility. Wound Assessment: 1. Left buttock: Stage II pressure ulcer, present on admission. Wound bed has 90% pink tissue, 10% red tissue. No odor, no drainage. Periwound intact. Wound measures 1.6 cm x 0.5 cm. Recommend: Cleanse wound with normal saline. Apply moisture barrier cream to wound and periwound. Apply Hydrogel to any portion of wound bed not covered by moisture barrier cream. Cover site with Sacral foam dressing. Perform wound care daily, and as needed for dressing soiling or dislodgment. 2. Buttocks: Dark discolored tissue with non-blanchable redness. Suspect possible sDTI, but site is not soft, boggy, or warm. Recommend: Cover site with same Sacral foam dressing used in site 1. Offload site at all times. Reposition patient side to side only every 2 hours with 1 pillow underneath trunk and 1 pillow underneath pelvis (initiate turning by placing 5th pillow underneath left side for 2 hours, then place fifth pillow underneath right side for 2 hours, rotating sides every 2 hours). 3. Right Lower Extremity: Thigh has moderate, nonpitting edema. Extremity below knee has 4+ pitting edema. Negative for calor. Knee has blanchable light pink coloration (red coloration present on admission). 4. Left Lower Extremity: Thigh has moderate, nonpitting edema. Extremity below knee has 3+ pitting edema. Positive for calor. Recommend: Elevate, offload and float bilateral lower extremities with 1 pillow lengthwise under each extremity at all times. Elevate extremities above heart as tolerated. Also recommend: Reposition patient side to side only every 2 hours with 1 pillow underneath trunk and 1 pillow underneath pelvis (initiate turning by placing 5th pillow underneath left side for 2 hours, then place fifth pillow underneath right side for 2 hours, rotating sides every 2 hours). Off-load pressure areas with pillows for pressure re-distribution. Offload, elevate and float bilateral heels with 1 pillow lengthwise under each extremity at all times. Perform skin care and monitor skin integrity Q shift. Use moisture barrier cream on buttocks and other moisture susceptible areas QID and as needed for soiling. Maintain patient on a low air-loss mattress.
--- NOTE | 2022-10-23 15:06 | NUR ---
Family speaking to Dr. Nair on the phone per families request. He told me he updated the family a couple of days ago.
--- NOTE | 2022-10-23 16:33 | NUR ---
ST EVALUATION COMPLETED. ST TX NOT INDICATED AT THIS TIME. PT UNABLE TO DEMONSTRATE A SAFE EFFECTIVE SWALLOW. RECOMMEND CONTINUE NPO WITH ALTERNATIVE MEANS OF NUTRITION.
--- NOTE | 2022-10-23 18:00 | NUR ---
RESTRAINTS APPLIED BECAUSE PATIENT KEEPS PULLING OFF BIPAP MASK.
[2022-10-23] MEDS: APIXABAN 2.5 MG TABLET PO SCH (20:55)
[2022-10-23] MEDS: SENNOSIDES 8.6 MG TABLET PO SCH (20:55)
[2022-10-23 20:58] LABS: BODY FLUID GLUCOSE 160 mg/dL; BODY FLUID TOTAL PROTEIN 2.3 g/dL
[2022-10-23] MEDS: FAT EMULSIONS 250 ML IV SCH (21:00)
[2022-10-23] MEDS: [UNRECOGNIZED DRUG - OTHER] IV SCH ×6 (21:01)
[2022-10-23] MEDS: TRACE ELEMENTS IV SCH ×6 (21:01)
[2022-10-23] MEDS: MVI IV SCH ×6 (21:01)
[2022-10-23] MEDS: NA PHOS IV SCH ×6 (21:01)
[2022-10-23] MEDS: TPN CENTRAL IV SCH ×6 (21:01)
[2022-10-24] VITALS (25 sets, daily range): BP systolic 102–138
[2022-10-24] MEDS: LevALBUTEROL HCL 1.25 MG/0.5 ML *CONC.* VIAL.NEB (XOPENEX CONC.) INH SCH ×4 (01:26→19:50)
[2022-10-24 06:38] LABS: ALANINE AMINOTRANSFERASE 13 U/L (12-78); ALBUMIN 1.6 g/dL (3.4-4.8); ANION GAP 4 (5-15); ASPARTATE AMINOTRANSFERASE 18 U/L (10-37); CALCIUM 7.4 mg/dL (8.4-11.0); CHLORIDE 102 mmol/L (98-107); CREATININE 0.83 mg/dL (0.55-1.30); GLUCOSE 112 mg/dL (70-99); PHOSPHORUS 2.6 mg/dL (2.7-4.5); TOTAL BILIRUBIN 0.3 mg/dL (0.0-1.0); UREA NITROGEN, BLOOD 36 mg/dL (8-21)
[2022-10-24 06:59] LABS: BASOPHILS # (AUTO) 0.1 K/uL (0.0-0.2); BASOPHILS % (AUTO) 1.1 % (0.0-2.0); EOSINOPHILS # (AUTO) 0.2 K/uL (0.0-0.4); EOSINOPHILS % (AUTO) 2.6 % (0.0-4.0); HEMATOCRIT 30.2 % (36-48); HEMOGLOBIN 9.6 g/dL (12.0-16.0); LYMPHOCYTES # (AUTO) 0.8 K/uL (1.0-5.5); LYMPHOCYTES % (AUTO) 13.1 % (20.5-51.5); MEAN CORPUSCULAR HEMOGLOBIN 27 pg (27-31); MEAN CORPUSCULAR HGB CONC 32 % (32-36); MEAN CORPUSCULAR VOLUME 85 fL (79.0-98.0); MONOCYTES # (AUTO) 0.7 K/uL (0.0-1.0); MONOCYTES % (AUTO) 11.1 % (1.7-9.3); NEUTROPHILS # (AUTO) 4.6 K/uL (1.8-7.7); NEUTROPHILS % (AUTO) 72.1 % (40.0-70.0); PLATELET COUNT (AUTO) 185 K/uL (130-430); RED BLOOD CELL COUNT(AUTO) 3.55 MIL/uL (4.2-6.2); RED CELL DISTRIBUTION WIDTH 24.1 % (9.0-15.0); WHITE BLOOD COUNT (AUTO) 6.4 K/uL (4.8-10.8)
--- NOTE | 2022-10-24 07:50 | NUR ---
RT NOTES Dr Rosado instructed me to take pt. off BIPAP, was made aware of tachypnea and desaturation off of bipap yesterday even after thoracentesis. Dr Rosado was made aware that pulmo, Dr Nair was at bedside to witness tachypnea and desaturation yesterday and instructed me to put pt back on bipap. Dr Rosado still wants pt. off bipap, was carried out @ 0811. @0828 pt is noted to have elevated R.R, mid to high 30s, some low 40s despite reeducation.
[2022-10-24] MEDS: SPIRONOLACTONE 25 MG TABLET (ALDACTONE) PO SCH (09:00)
[2022-10-24] MEDS: SACUBITRIL/VALSARTAN 24 MG-26 MG 1 TABLET PO SCH ×2 (09:00→22:01)
[2022-10-24] MEDS: DOCUSATE SODIUM 100 MG CAPSULE PO SCH ×2 (09:00→22:01)
[2022-10-24] MEDS: DILTIAZEM HCL 30 MG TABLET PO SCH ×3 (09:00→22:00)
[2022-10-24] MEDS: POTASSIUM CHLORIDE 20 MEQ/PKT PACKET PO SCH (09:00)
[2022-10-24] MEDS: APIXABAN 2.5 MG TABLET PO SCH ×2 (09:00→22:01)
[2022-10-24] MEDS: acetaZOLAMIDE 250 MG TABLET (DIAMOX) PO SCH (09:00)
[2022-10-24] MEDS: METOPROLOL SUCCINATE 25 MG TAB.SR.24H (TOPROL XL) PO SCH (09:00)
[2022-10-24] MEDS: FUROSEMIDE 20 MG/2 ML VIAL IVP SCH ×2 (09:08→22:01)
--- NOTE | 2022-10-24 09:51 | NUR ---
Nutrition F/U RD reviewed pts current EMR including diet hx, physician notes, nursing notes, pertinent labs/meds/procedures, care trends and care activity. Subjective Information RD rounded to ICU and s/w primary RN about her condition. RN reports pt is currently on TPN @ 60mL/hr, ILE @ 10mL/hr (goal). She said that a swallow eval is ordered for today. RN attests that pt is on oximizer at 4L; was found positive for MRSA on 10/17; had thoracentesis yesterday (1.5L out) and pt is breathing better today; pt has skin issues. RD asked about LBM bc last documented was 10/19 and RN breanne unsure of the last. Per EMR review: pt abd soft, non-distended w/ active bowel sounds; BP 115/47 L ; Grover: 10 w/ redness on L knee and L/R heels, Skin tear/ unstageable DTI on posterior buttocks; pt failed swallow on 10/23 Current Diet Order/Nutrition Support NPO x 3 days & TPN: D40, A8.5% @ 60 mL/hr; 20%ILE @ 10mL/hr via PICC line Provides: 1704 kcal, 61g PRO, total volume: 1680mL; GIR:2.9 mg/kg/min Meets: 97% of lower est kcal, 79% of upper est PRO, 99% of lower est fluid needs % PO intake NPO Last BM 10/19 x 3 Estimated Energy Expenditure (kcals/day) 8805-1594 kcal (25-30 kcal/kg CBW d/t RF and septic shock) Estimated Protein Required (g/day) 42-77g (0.6-1.1 g/kg CBW d/t CKD, septic shock, wounds) Estimated Fluid Required (l/day) 1.7-2.1L (1mL/kcal maintenance) Problem/Etiology/Signs/Symptoms * Increased energy and protein utilization r/t metabolic demands AEB estimated nutritional needs for wound healing and sepsis (ongoing) * Altered nutrition-related lab values r/t renal dysfunction AEB high BUN/Cre (BUN high, Cre WNL) Expected Outcomes/Goals PO intake provides >85% estimated nutrient needs, nutrition-related labs trending WNL, improvements in skin integrity, BM q1-3 days Dietitian Recommendations *Continue TPN --D40, AA8.5% @ 60 (goal) & 20% ILE @10mL/hr via PICC line Provides: 1704 kcal, 61g PRO, total volume: 1680mL; GIR:2.9 mg/kg/min Meets: 97% of lower est kcal, 79% of upper est PRO, 99% of lower est fluid needs *Advance diet, if appropriate, once evaluated by ST Follow up *High risk: f/u in 2-3 days ANJALI, MPH, RD
--- NOTE | 2022-10-24 09:53 | NUR ---
Dietitian Recommendations *Continue TPN --D40, AA8.5% @ 60 (goal) & 20% ILE @10mL/hr via PICC line Provides: 1704 kcal, 61g PRO, total volume: 1680mL; GIR:2.9 mg/kg/min Meets: 97% of lower est kcal, 79% of upper est PRO, 99% of lower est fluid needs *Advance diet, if appropriate, once evaluated by ST ALBA, MPH, RD Please refer to Nutrition F/U for further details. Thanks!
--- NOTE | 2022-10-24 13:54 | NUR ---
RT NOTES Dr Korey lorenzo, aware of tachypnea since being off bipap this AM and he's fine with it.
[2022-10-24] MEDS: ERTAPENEM SODIUM 1 GM in NS 50 ML IV SCH (14:40)
--- NOTE | 2022-10-24 17:06 | NUR ---
ST EVALUATION COMPLETED. ST TX NOT INDICATED AT THIS TIME. RECOMMEND PO DIET OF PUREE/NECTAR THICK LIQUIDS. 1:1 ASSISTANCE AND FULL ASPIRATION PRECAUTIONS.
[2022-10-24] MEDS ORDERED: MENTHOL/ZINC OXIDE 113 GM OINT. TP PRN (17:30)
--- NOTE | 2022-10-24 19:00 | NUR ---
Opening notes Received report from endorsing morning shift RN for continuity of care. Patient is lying in bed with IVF NS @ TKO, TPN @ 60 mL/hr, and lipids @ 10 mL/hr. Patient's daughter is at the bedside. Patient's vital signs blood pressure 137/64, heart rate 99, respirations 44, and SPO2 99% on high flow NC 20L 30%. Leyva catheter is draining to gravity. Bed is locked and in lowest position, call light button within reach, fall and safety precautions is in place. Addendum: 10/25/22 at 0027 by Yojana Oliver RN [id number] Gave report to another RN. Patient is lying in bed, all vital signs are within limits.
[2022-10-24] MEDS ORDERED: [UNRECOGNIZED DRUG - OTHER] IV SCH ×8 (21:00)
[2022-10-24] MEDS ORDERED: POTASSIUM CHLORIDE IV SCH ×8 (21:00)
[2022-10-24] MEDS ORDERED: TPN CENTRAL IV SCH ×8 (21:00)
[2022-10-24] MEDS ORDERED: NA PHOS IV SCH ×8 (21:00)
[2022-10-24] MEDS: FAT EMULSIONS 250 ML IV SCH (21:59)
[2022-10-24] MEDS: SENNOSIDES 8.6 MG TABLET PO SCH (22:00)
[2022-10-24] MEDS: MUPIROCIN 2% TOPICAL OINTMENT 22 GM NS SCH (22:01)
--- NOTE | 2022-10-24 22:15 | NUR ---
Pt report received. Pt alert and responsive, respirations even and non-labored, O2 at 20 LPM/HFNC at 30% FiO2. SARAHI PICC secure with TPN at 60 mL/hr, Lipids at 10 mL/hr and NS at TKO. F/C secure draining yellow urine to bag. Pt denies c/o pain or discomfort and no needs verbalized. VSS, NAD.
--- NOTE | 2022-10-24 23:15 | NUR ---
RT NOTES INSTRUCTED PT ON WEARING OF BIPAP PER NOC ORDER. PT DID NOT WANT TO USE BIPAP. ASKED PT TO TRY IT AND SHE AGREED. PLACED PT ON BIPAP. PT REMOVED BIPAP IMMEDIATELY. PLACED BACK ON VAPOTHERM 20L 30%. LIZBETH ALMEIDA. Addendum: 10/24/22 at 2330 by Kevin Andujar RT Amended: Links added.
[2022-10-25] VITALS (24 sets, daily range): BP systolic 105–138
[2022-10-25] MEDS: LevALBUTEROL HCL 1.25 MG/0.5 ML *CONC.* VIAL.NEB (XOPENEX CONC.) INH SCH ×4 (01:00→19:34)
[2022-10-25 05:15] LABS: BASOPHILS # (AUTO) 0.1 K/uL (0.0-0.2); BASOPHILS % (AUTO) 1.1 % (0.0-2.0); EOSINOPHILS # (AUTO) 0.2 K/uL (0.0-0.4); EOSINOPHILS % (AUTO) 2.9 % (0.0-4.0); HEMATOCRIT 31.9 % (36-48); HEMOGLOBIN 10.1 g/dL (12.0-16.0); LYMPHOCYTES # (AUTO) 0.9 K/uL (1.0-5.5); LYMPHOCYTES % (AUTO) 14.7 % (20.5-51.5); MEAN CORPUSCULAR HEMOGLOBIN 27 pg (27-31); MEAN CORPUSCULAR HGB CONC 32 % (32-36); MEAN CORPUSCULAR VOLUME 86 fL (79.0-98.0); MONOCYTES # (AUTO) 0.9 K/uL (0.0-1.0); MONOCYTES % (AUTO) 15.2 % (1.7-9.3); NEUTROPHILS # (AUTO) 3.9 K/uL (1.8-7.7); NEUTROPHILS % (AUTO) 66.1 % (40.0-70.0); PLATELET COUNT (AUTO) 185 K/uL (130-430); RED BLOOD CELL COUNT(AUTO) 3.73 MIL/uL (4.2-6.2); RED CELL DISTRIBUTION WIDTH 24.2 % (9.0-15.0); WHITE BLOOD COUNT (AUTO) 5.8 K/uL (4.8-10.8)
[2022-10-25 05:45] LABS: ALANINE AMINOTRANSFERASE 10 U/L (12-78); ALBUMIN 1.5 g/dL (3.4-4.8); ANION GAP 3 (5-15); ASPARTATE AMINOTRANSFERASE 17 U/L (10-37); CALCIUM 7.7 mg/dL (8.4-11.0); CHLORIDE 101 mmol/L (98-107); CREATININE 0.67 mg/dL (0.55-1.30); GLUCOSE 123 mg/dL (70-99); PHOSPHORUS 3.1 mg/dL (2.7-4.5); TOTAL BILIRUBIN 0.3 mg/dL (0.0-1.0); UREA NITROGEN, BLOOD 30 mg/dL (8-21)
--- NOTE | 2022-10-25 07:15 | NUR ---
Pt report given to oncoming RN. Pt resting quietly, even and non-labored respirations, VSS, NAD.
--- NOTE | 2022-10-25 07:20 | NUR ---
Received pt from slot shift supervisor RN, lying in the bed, awake and alert x 3, following commands, breathing unlabored and even, O2 sat well on 10L / HFNC, 30% FiO2, VS stable, Generalized pitting edema, right PICC infusing with TPN at 60ml/hr, lipid at 10ml/hr, NS at TKO, F/C secure draining yellow urine to bag.
--- NOTE | 2022-10-25 07:34 | NUR ---
RT NOTES 0734 PLACED PT ON BIPAP, UPON SEEING PT, PT BREATHING MID 40S. PER NOC RT, PT REFUSED USING BIPAP LAST NIGHT. WILL TRY BIPAP FOR FEW HOURS. PT SATURATING 99%, RR 28 RIGHT NOW. WILL CONT TO MONITOR PT. RN OLIVER MADE AWARE.
[2022-10-25] MEDS: FUROSEMIDE 20 MG/2 ML VIAL IVP SCH ×2 (08:52→20:49)
[2022-10-25] MEDS: DOCUSATE SODIUM 100 MG CAPSULE PO SCH ×2 (08:54→20:47)
[2022-10-25] MEDS: acetaZOLAMIDE 250 MG TABLET (DIAMOX) PO SCH (08:55)
[2022-10-25] MEDS: POTASSIUM CHLORIDE 20 MEQ/PKT PACKET PO SCH (08:55)
[2022-10-25] MEDS: SPIRONOLACTONE 25 MG TABLET (ALDACTONE) PO SCH (08:55)
[2022-10-25] MEDS: METOPROLOL SUCCINATE 25 MG TAB.SR.24H (TOPROL XL) PO SCH (08:58)
[2022-10-25] MEDS: APIXABAN 2.5 MG TABLET PO SCH ×2 (08:59→20:51)
[2022-10-25] MEDS: SACUBITRIL/VALSARTAN 24 MG-26 MG 1 TABLET PO SCH ×2 (08:59→20:47)
[2022-10-25] MEDS: DILTIAZEM HCL 30 MG TABLET PO SCH ×3 (09:00→20:48)
--- NOTE | 2022-10-25 10:30 | NUR ---
rt notes 1030 Offloaded pt from bipap, found pt on Vapo 10L/ 30% FIO2. Pt saturating 100%. RR 28-30s. Encouraged pt to do nice slow deep breathing. will cont to monitor pt.
[2022-10-25] MEDS: MUPIROCIN 2% TOPICAL OINTMENT 22 GM NS SCH ×2 (12:39→20:50)
--- NOTE | 2022-10-25 13:47 | NUR ---
rt notes 1347 Placed pt on 4L oxym. Vapo on STBY. pt saturating 100%, HR 88. RR18-20. encouraged pt to do slow deep breathing, pt verbalize/demonstrate she understood. will cont to monitor pt.
[2022-10-25] MEDS: ERTAPENEM SODIUM 1 GM in NS 50 ML IV SCH (14:02)
--- NOTE | 2022-10-25 15:18 | NUR ---
assessed pt at bedside, update pt's daughter over the phone
--- NOTE | 2022-10-25 17:30 | NUR ---
on Oxymizer O2 at 4L, fast and shallow breathing, RR 40s, RT switch to AVAPS Vt 450 RR 20 EPAP 5 MinP 7 MaxP 25. RR 20s.
--- NOTE | 2022-10-25 17:59 | NUR ---
rt notes 812 got call from LIZBETH Malik pt, desaturating and tachypneic. Placed pt back on BIPAP (avaps 450vt mode), with Medium mask instead of avatar. Protecta gel in placed. will endorse to NOC shift about switching mask every 4 hours. Pt saturating 100% on bipap, respirations at 28 right now. Family at bedside. LIZBETH Malik explained why pt needs to be on bipap. vapo on stby. will cont to monitor pt.
--- NOTE | 2022-10-25 19:00 | NUR ---
Opening notes Received report from endorsing morning shift RN for continuity of care. Patient is lying in bed with IVF NS @ TKO, TPN @ 60 mL/hr, and lipid @ 10 mL/hr. Patient's vital signs blood pressure 128/45, heart rate 93, respirations 36, SPO2 100% on Bipap. Bipap settings AVAPS tidal volume 450, FIO2 30%, and rate of 20. Patient is on pureed diet with nectar thick liquids. Leyva catheter is in place, draining to gravity. Bed is locked and in lowest position, call light button within reach, fall and safety precautions is in place.
--- NOTE | 2022-10-25 19:13 | NUR ---
Handed off pt to oncoming shift nurse, pt lying in bed, on AVAPS mode, tolerated well, BP maintained.
[2022-10-25] MEDS: SENNOSIDES 8.6 MG TABLET PO SCH (20:49)
[2022-10-25] MEDS: FAT EMULSIONS 250 ML IV SCH (20:51)
[2022-10-25] MEDS ORDERED: TPN CENTRAL IV SCH ×9 (21:00)
[2022-10-25] MEDS ORDERED: POTASSIUM CHLORIDE IV SCH ×9 (21:00)
[2022-10-25] MEDS ORDERED: [UNRECOGNIZED DRUG - OTHER] IV SCH ×9 (21:00)
[2022-10-25] MEDS ORDERED: SODIUM CHLORIDE IV SCH ×9 (21:00)
--- NOTE | 2022-10-25 23:20 | NUR ---
rt notes. pt requested to be off of the bipap. stated that they wnated to take a break from it and will try it later. placed on 5l oxy. no resp. distress noted. will continue to monitor. rn notified.
[2022-10-26] VITALS (24 sets, daily range): BP systolic 91–128
[2022-10-26] MEDS: LevALBUTEROL HCL 1.25 MG/0.5 ML *CONC.* VIAL.NEB (XOPENEX CONC.) INH SCH ×4 (01:40→19:37)
--- NOTE | 2022-10-26 01:48 | NUR ---
RT NOTES. ASKED IF PT WANTED TO BE PLACED ON BIPAP AGAIN AND PT AGREED. PT IS TACHYPNEIC BUT BIPAP ASSISTED WITH RR. TOLERATING WELL. NO RESP. DISTRESS NOTED. WILL CONTINUE TO MONITOR. RN NOTIFIED.
[2022-10-26 06:04] LABS: ALANINE AMINOTRANSFERASE 19 U/L (12-78); ALBUMIN 1.8 g/dL (3.4-4.8); ANION GAP 0 (5-15); ASPARTATE AMINOTRANSFERASE 23 U/L (10-37); CALCIUM 8.1 mg/dL (8.4-11.0); CHLORIDE 101 mmol/L (98-107); CREATININE 0.75 mg/dL (0.55-1.30); GLUCOSE 106 mg/dL (70-99); PHOSPHORUS 3.3 mg/dL (2.7-4.5); TOTAL BILIRUBIN 0.3 mg/dL (0.0-1.0); UREA NITROGEN, BLOOD 33 mg/dL (8-21)
--- NOTE | 2022-10-26 07:10 | NUR ---
Received pt from shift foreman RN, lying in the bed, arousable, following commands, on AVAPS Vt 450 RR 20 EPAP 5 3 FiO2 30%, VS maintained, Generalized pitting edema, right PICC infusing with TPN at 60ml/hr, lipid at 10ml/hr, NS at TKO, F/C secure draining yellow urine to bag.
--- NOTE | 2022-10-26 09:16 | NUR ---
rt notes 0709 received pt on bipap (avaps mode), pt resting comfortably. no distress noted. kept pt on bipap. 0916 offloaded pt from bipap, placed pt on 6L oxymizer. pt saturating 99%. rr 18. will cont to monitor pt. LIZBETH Smalls made aware.
[2022-10-26] MEDS: POTASSIUM CHLORIDE 20 MEQ/PKT PACKET PO SCH (09:20)
[2022-10-26] MEDS: FUROSEMIDE 20 MG/2 ML VIAL IVP SCH ×2 (09:21→21:01)
[2022-10-26] MEDS: acetaZOLAMIDE 250 MG TABLET (DIAMOX) PO SCH (09:21)
[2022-10-26] MEDS: SPIRONOLACTONE 25 MG TABLET (ALDACTONE) PO SCH (09:21)
[2022-10-26] MEDS: DOCUSATE SODIUM 100 MG CAPSULE PO SCH ×2 (09:22→21:14)
[2022-10-26] MEDS: METOPROLOL SUCCINATE 25 MG TAB.SR.24H (TOPROL XL) PO SCH (09:22)
[2022-10-26] MEDS: DILTIAZEM HCL 30 MG TABLET PO SCH ×3 (09:22→21:02)
[2022-10-26] MEDS: APIXABAN 2.5 MG TABLET PO SCH ×2 (09:23→21:03)
[2022-10-26] MEDS: MUPIROCIN 2% TOPICAL OINTMENT 22 GM NS SCH ×2 (09:25→21:14)
[2022-10-26] MEDS: SACUBITRIL/VALSARTAN 24 MG-26 MG 1 TABLET PO SCH ×2 (09:25→21:03)
[2022-10-26] MEDS: ERTAPENEM SODIUM 1 GM in NS 50 ML IV SCH (14:18)
[2022-10-26] MEDS: EPOETIN ALFA 10,000 UNITS/ML VIAL SUBCUT SCH (18:51)
--- NOTE | 2022-10-26 19:19 | NUR ---
RT Brown informed that Dr. Nair wants pt on AVAPS each night.
--- NOTE | 2022-10-26 19:35 | NUR ---
Gave report to oncoming shift nurse, RN in stable condition, family at bedside, endorsed RN and RT that pt has to be on AVAPS at [facility].
--- NOTE | 2022-10-26 20:00 | NUR ---
rRN NOTES AWAKE, LAPSES OF CONFUSION NOTED, O2 VIA OXYMIZER @ 5L/MIN. SPO2 GOOD. A. FIB ON THE MONITOR. VITALS CHECKED AND RECORDED.
[2022-10-26] MEDS ORDERED: POTASSIUM CHLORIDE IV SCH ×9 (21:00)
[2022-10-26] MEDS ORDERED: SODIUM CHLORIDE IV SCH ×9 (21:00)
[2022-10-26] MEDS ORDERED: TPN CENTRAL IV SCH ×9 (21:00)
[2022-10-26] MEDS ORDERED: [UNRECOGNIZED DRUG - OTHER] IV SCH ×9 (21:00)
[2022-10-26] MEDS: SENNOSIDES 8.6 MG TABLET PO SCH (21:01)
[2022-10-26] MEDS: FAT EMULSIONS 250 ML IV SCH (21:04)
--- NOTE | 2022-10-26 22:30 | NUR ---
PM CARE DONE, REPOSITIONED FOR COMFORT.
[2022-10-27] VITALS (12 sets, daily range): BP systolic 90–115
[2022-10-27] MEDS: LevALBUTEROL HCL 1.25 MG/0.5 ML *CONC.* VIAL.NEB (XOPENEX CONC.) INH SCH ×4 (00:27→20:22)
--- NOTE | 2022-10-27 02:00 | NUR ---
RN NOTES PATIENT O2 SWITCHED FROM AVAPS TO 3L NC. SPO2 98% REPOSITIONED FOR COMFORT.
--- NOTE | 2022-10-27 06:00 | NUR ---
RN NOTES AM CARE DONE. BS - 115 MG/DL, NO INSULIN COVERAGE GIVEN. TPN AND LIPIDS INFUSING WELL. PATIENT KEPT COMFORTABLE.
[2022-10-27 07:38] LABS: ALANINE AMINOTRANSFERASE 17 U/L (12-78); ALBUMIN 1.4 g/dL (3.4-4.8); ANION GAP 0 (5-15); ASPARTATE AMINOTRANSFERASE 20 U/L (10-37); CALCIUM 7.8 mg/dL (8.4-11.0); CHLORIDE 99 mmol/L (98-107); CREATININE 0.63 mg/dL (0.55-1.30); GLUCOSE 103 mg/dL (70-99); PHOSPHORUS 3.2 mg/dL (2.7-4.5); TOTAL BILIRUBIN 0.2 mg/dL (0.0-1.0); UREA NITROGEN, BLOOD 35 mg/dL (8-21)
[2022-10-27] MEDS: FUROSEMIDE 20 MG/2 ML VIAL IVP SCH ×2 (08:31→21:37)
[2022-10-27] MEDS: MUPIROCIN 2% TOPICAL OINTMENT 22 GM NS SCH ×2 (08:32→21:34)
[2022-10-27] MEDS: SPIRONOLACTONE 25 MG TABLET (ALDACTONE) PO SCH (08:33)
[2022-10-27] MEDS: DOCUSATE SODIUM 100 MG CAPSULE PO SCH ×2 (08:34→21:35)
[2022-10-27] MEDS: DILTIAZEM HCL 30 MG TABLET PO SCH ×3 (08:34→21:35)
[2022-10-27] MEDS: acetaZOLAMIDE 250 MG TABLET (DIAMOX) PO SCH (08:35)
[2022-10-27] MEDS: POTASSIUM CHLORIDE 20 MEQ/PKT PACKET PO SCH (08:35)
[2022-10-27] MEDS: SACUBITRIL/VALSARTAN 24 MG-26 MG 1 TABLET PO SCH ×2 (08:35→21:36)
[2022-10-27] MEDS: METOPROLOL SUCCINATE 25 MG TAB.SR.24H (TOPROL XL) PO SCH (08:36)
[2022-10-27] MEDS: APIXABAN 2.5 MG TABLET PO SCH ×2 (08:38→21:34)
--- NOTE | 2022-10-27 09:30 | NUR ---
Patient Transferred to Telemetry Rm. 116B for Alternate Level of Care. Patient Tolerated Transfer Without Incident with Detailed Report Given to LIZBETH Booth. Continue to Monitor.
--- NOTE | 2022-10-27 10:00 | NUR ---
Note Received pt from DEVELOPMENTAL PSYCHOLOGIST Ian. Pt came to floor via bed. Pt's SARAHI PICC double lumen, intact and patent infusing TPN/Lipids and TKO NS. Leyva catheter intact and draining well. Pt on O2 at 3L/nc. Pt has heel boots on bilaterally. LAC IV intact and patent at this time. Pt is in isolation for MRSA in nares/ Pt positive for MDRO, E-Coli and ESBL in urine. No SOB/resp distress or chest pain/discomfort noted at this time. Side rails raised and bed alarm on. Bed in low position at this time. Pt had tele unit attached on admission to floor. Call light within reach. No needs noted.
--- NOTE | 2022-10-27 12:00 | NUR ---
Note Pt's daughter called and update on pt's status given.
[2022-10-27] MEDS: ERTAPENEM SODIUM 1 GM in NS 50 ML IV SCH (13:39)
--- NOTE | 2022-10-27 15:15 | NUR ---
Note Pt resting in bed and no needs noted at this time. Call light within reach.
--- NOTE | 2022-10-27 18:40 | NUR ---
End of shift. Pt resting in bed - denies any needs at this time. SARAHI PICC intact and patent infusing TPN/Lipids well. Leyva catheter intact and draining well. Pt on O2 at 3L/nc. Pt requested foot/heel boots be off for some time. Heel boots removed and will reapply them in an hour. Call light within reach. Pt has been maintained with isolation precautions all shift (since 10am) for MRSA in nares, ESBL/MDRO and E-Coli in urine. Bed in low position and bed alarm on. Side rails raised all shift.
[2022-10-27] MEDS ORDERED: POTASSIUM CHLORIDE IV SCH ×9 (21:00)
[2022-10-27] MEDS ORDERED: TPN CENTRAL IV SCH ×9 (21:00)
[2022-10-27] MEDS ORDERED: SODIUM CHLORIDE IV SCH ×9 (21:00)
[2022-10-27] MEDS ORDERED: [UNRECOGNIZED DRUG - OTHER] IV SCH ×9 (21:00)
[2022-10-27] MEDS: FAT EMULSIONS 250 ML IV SCH (21:32)
[2022-10-27] MEDS: SENNOSIDES 8.6 MG TABLET PO SCH (21:36)
[2022-10-28] VITALS (8 sets, daily range): BP systolic 85–110
[2022-10-28] MEDS: LevALBUTEROL HCL 1.25 MG/0.5 ML *CONC.* VIAL.NEB (XOPENEX CONC.) INH SCH ×4 (03:21→20:06)
[2022-10-28 07:18] LABS: ALANINE AMINOTRANSFERASE 17 U/L (12-78); ALBUMIN 1.5 g/dL (3.4-4.8); ANION GAP 2 (5-15); ASPARTATE AMINOTRANSFERASE 21 U/L (10-37); CALCIUM 8.1 mg/dL (8.4-11.0); CHLORIDE 99 mmol/L (98-107); CREATININE 0.71 mg/dL (0.55-1.30); GLUCOSE 120 mg/dL (70-99); PHOSPHORUS 3.9 mg/dL (2.7-4.5); TOTAL BILIRUBIN 0.2 mg/dL (0.0-1.0); UREA NITROGEN, BLOOD 43 mg/dL (8-21)
--- NOTE | 2022-10-28 08:00 | NUR ---
OPENING NOTE RECEIVED PT SLEEPING WITHOUT DISTRESS. AWAKENS EASILY. ANSWERS QUESTIONS WITH SHORT RESPONSES. NODS HEAD FOR OTHER RESPONSES. ATTEMPTED TO REPLACE HEEL PROTECTORS BUT PT STATES "I DONT WANT THOSE." EXPLAINED THEY ARE TO PROTECT SKIN FROM BREAKDOWN BUT STATES AGAIN "NO, I DON'T WANT THOSE." RIGHT PICC INTACT WITH TPN/LIPIDS PER ORDERS. LEFT AC 20G REMOVED.
[2022-10-28] MEDS: POTASSIUM CHLORIDE 20 MEQ/PKT PACKET PO SCH (09:00)
[2022-10-28] MEDS: DOCUSATE SODIUM 100 MG CAPSULE PO SCH ×2 (09:00→23:55)
[2022-10-28] MEDS: SACUBITRIL/VALSARTAN 24 MG-26 MG 1 TABLET PO SCH ×2 (09:00→21:00)
[2022-10-28] MEDS: DILTIAZEM HCL 30 MG TABLET PO SCH ×3 (09:00→21:00)
[2022-10-28] MEDS: SPIRONOLACTONE 25 MG TABLET (ALDACTONE) PO SCH (09:00)
[2022-10-28] MEDS: FUROSEMIDE 20 MG/2 ML VIAL IVP SCH ×2 (09:00→21:00)
[2022-10-28] MEDS: METOPROLOL SUCCINATE 25 MG TAB.SR.24H (TOPROL XL) PO SCH (09:00)
[2022-10-28] MEDS: MUPIROCIN 2% TOPICAL OINTMENT 22 GM NS SCH ×2 (09:55→23:56)
[2022-10-28] MEDS: acetaZOLAMIDE 250 MG TABLET (DIAMOX) PO SCH (09:56)
[2022-10-28] MEDS: APIXABAN 2.5 MG TABLET PO SCH ×2 (09:57→23:54)
--- NOTE | 2022-10-28 11:58 | NUR ---
ORAL CARE PROVIDED PATIENT WITH ORAL CARE. REPOSITIONED. PILLOW SUPPORT.
--- NOTE | 2022-10-28 12:00 | NUR ---
PAIN PATIENT COMPLAINING OF PAIN TO THE BACK. REQUESTED TYLENOL.
[2022-10-28] MEDS: ACETAMINOPHEN 325 MG TABLET PO PRN (12:09)
--- NOTE | 2022-10-28 13:40 | NUR ---
MD DR MONTANA BEDSIDE EXAMINING PATIENT
--- NOTE | 2022-10-28 15:09 | NUR ---
MD & FAMILY PATIENTS FAMILY (DAUGHTER AND SON IN LAW) SPEAKING WITH DR MONTANA
--- NOTE | 2022-10-28 15:46 | NUR ---
Nutrition F/U Manager Mining reviewed pts current EMR including diet Hx, physician notes, nursing notes, pertinent labs/meds/procedures, care trends, and care activity. Admission Dx Sepsis/Acute Respiratory Failure PMH 77 YOF who presented to the ER w/ ARF and septic shock. Pt started on BiPAP, IV fluids, Abx, and was admitted to the ICU. Pt is DNI/DNR. PMH: Paroxysmal Afib, CHF, chronic anemia, CKD, HTN 10/23: Failed swal. eval. 10/24: Passed swal.eval. - ST ordered pureed, NTL w/ 1:1 assistance & full aspiration precautions. 10/27: Pulmonary edema (improved), hypercapnia, hyponatremia, pleural effusion, UTI E. Coli positive. Pt on diuretics, TB negative I/O: 1305mL/930mL (375mL) Subjective Information Manager Mining s/w primary RN and stated that pt only took a few bites of pudding for B & refused the rest of the tray. RN stated that pt is not used to eating and is dependent on TPN. Recommended appetite stimulant and RN agreed. Checked bedscale wt. and saw that pt drank about 30% of Ensure. Pts feet still looked swollen. Bedscale wt: 172#/78kg Current Diet Order/Nutrition Support Puree, NTL x 3 days, Demetris BID x 10 days, & * TPN: D40%, AA8.5% @ 60 mL/hr; 20%ILE @ 10mL/hr via PICC line: - Provides: 1704 kcal, 61g PRO, total volume: 1680mL; GIR:2.9 mg/kg/min - Meets: 81% of lower est kcal and 87% of lower est PRO Patient/Significant Other Unable to Verbalize Education Provided No Pertinent Medications KCl @ 60mL, NaCl, Lopressor, D50 @ 50mL, Lasix, Senna, Colace, Eliquis, Spironolactone, Diamox, MVI Pertinent Labs CO2 35H (trending down), BUN 43H (trending up), POC BG 115H (trending up), Ca 8.1L (trending up) Height (Feet) 5 feet Height (Inches) 6 inches Weight (Pounds) 154# (Stable since 10/18) Patient Weight 70kg Body Mass Index 24.9 kg/m2 %IBW 118% [place]/Adjusted Body Weight 130#/59kg Recent Weight Change No per RN screen Weight Status Overweight Last BM 10/28 Food Allergies Unable to assess Gastrointestinal Symptoms None Usual Diet At Home Regular per RN screen Skin Integrity Comment: Grover: 14 Wounds: Abrasions on L knee and posterior buttocks Edema: 3+ pitting edema to BLE Current % PO Negligible, avg 10% x 11 meals Estimated Energy Expenditure (kcals/day) 9225-7348 kcal (30-35 kcal/kg CBW d/t RF and septic shock) Estimated Protein Required (g/day) 70-105 (1-1.5 g/kg CBW d/t CKD, septic shock, wounds) Estimated Fluid Required (L/day) Defer to MD (CKD) Problem/Etiology/Signs/Symptoms *MODIFIED Inadequate oral intake R/T decreased appetite AEB pt refusing to eat and avg 10% x 11 meals (*New) Increased energy and protein utilization R/T metabolic demands AEB estimated nutritional needs for wound healing and septic shock. (*Ongoing) Altered nutrition-related lab values R/t renal dysfunction AEB high BUN/Cre (BUN high, Cre WNL) (*Ongoing) Expected Outcomes/Goals Monitor appetite and PO intake provides >50% estimated nutrient needs, nutrition-related labs trending WNL, improvements in skin integrity, BM q1-3 days Dietitian Recommendations * Puree, NTL, Ensure TID, Demetris BID, Prosource TID (ONS provides 1410 kcals and 110 g PRO per day). * Encourage good PO intakes. * Consider appetite stimulant (Megace) * Continue TPN. - D40, AA8.5% @ 60 mL/hr (goal rate) & 20% ILE @10mL/hr via PICC line: Provides: 1704 kcal, 61g PRO, total volume: 1680 mL; GIR:2.9 mg/kg/min Meets: 81% of lower est. kcal, and 187% of lower est. PRO Follow Up High Risk: 2-3 days
--- NOTE | 2022-10-28 15:47 | NUR ---
Dietitian Recommendations * Puree, NTL, Ensure TID, Demetris BID, Prosource TID (ONS provides 1410 kcals and 110 g PRO per day). * Encourage good PO intakes. * Consider appetite stimulant (Megace) * Continue TPN. - D40, AA8.5% @ 60 mL/hr (goal rate) & 20% ILE @10mL/hr via PICC line: Provides: 1704 kcal, 61g PRO, total volume: 1680 mL; GIR:2.9 mg/kg/min Meets: 81% of lower est. kcal, and 187% of lower est. PRO LP, MS, RD Please refer to Nutrition F/U for details.
[2022-10-28] MEDS: ERTAPENEM SODIUM 1 GM in NS 50 ML IV SCH (16:31)
--- NOTE | 2022-10-28 18:50 | NUR ---
closing no distress, sleeping soundly. awakens easily. denies pain. skin warm and dry. call light in reach, observed often. report to oncoming RN
[2022-10-28] MEDS ORDERED: SODIUM CHLORIDE IV SCH ×9 (21:00)
[2022-10-28] MEDS ORDERED: [UNRECOGNIZED DRUG - OTHER] IV SCH ×9 (21:00)
[2022-10-28] MEDS ORDERED: POTASSIUM CHLORIDE IV SCH ×9 (21:00)
[2022-10-28] MEDS ORDERED: K PHOS IV SCH ×9 (21:00)
[2022-10-28] MEDS ORDERED: TPN CENTRAL IV SCH ×9 (21:00)
--- NOTE | 2022-10-28 23:30 | NUR ---
RT NOTES PT REFUSED AVAPS AT THIS TIME. PT REMAIN ON 2L NC. RN MADE AWARE.
--- NOTE | 2022-10-28 23:35 | NUR ---
Miss Arriaza has declined HS Bipap placement and she refuses to have heel protectors replaced.
[2022-10-28] MEDS: FAT EMULSIONS 250 ML IV SCH (23:55)
[2022-10-29] MEDS: SENNOSIDES 8.6 MG TABLET PO SCH ×2 (00:28→22:05)
[2022-10-29] MEDS: LevALBUTEROL HCL 1.25 MG/0.5 ML *CONC.* VIAL.NEB (XOPENEX CONC.) INH SCH ×4 (01:11→19:54)
[2022-10-29 04:35] VITALS: BP_SYST 94
--- NOTE | 2022-10-29 06:30 | NUR ---
Miss Arriaza has been assessed as indicated. She continues to deny pain. TPN and lipids have been well tolerated. blood sugars have been WNL. It has been a challenge to encourage PO intake with her. She did not accept Bipap or heel protectors for the duration of this shift. She remains pleasant and cooperative.
--- NOTE | 2022-10-29 07:15 | NUR ---
Elizabeth has given to Farida
[2022-10-29] MEDS: FUROSEMIDE 20 MG/2 ML VIAL IVP SCH ×2 (07:31→22:00)
[2022-10-29] MEDS: SPIRONOLACTONE 25 MG TABLET (ALDACTONE) PO SCH (07:33)
[2022-10-29] MEDS: METOPROLOL SUCCINATE 25 MG TAB.SR.24H (TOPROL XL) PO SCH (07:33)
[2022-10-29] MEDS: DILTIAZEM HCL 30 MG TABLET PO SCH ×3 (07:34→22:05)
[2022-10-29 08:00] VITALS: BP_SYST 117
[2022-10-29] MEDS: APIXABAN 2.5 MG TABLET PO SCH ×2 (08:02→22:04)
[2022-10-29] MEDS: SACUBITRIL/VALSARTAN 24 MG-26 MG 1 TABLET PO SCH ×2 (08:03→22:04)
[2022-10-29] MEDS: DOCUSATE SODIUM 100 MG CAPSULE PO SCH ×2 (08:04→22:05)
[2022-10-29] MEDS: acetaZOLAMIDE 250 MG TABLET (DIAMOX) PO SCH (08:04)
[2022-10-29 08:28] LABS: ALBUMIN 1.7 g/dL (3.4-4.8); ANION GAP 3 (5-15); ASPARTATE AMINOTRANSFERASE 23 U/L (10-37); CALCIUM 8.4 mg/dL (8.4-11.0); CHLORIDE 99 mmol/L (98-107); CREATININE 0.66 mg/dL (0.55-1.30); GLUCOSE 122 mg/dL (70-99); PHOSPHORUS 4.4 mg/dL (2.7-4.5); TOTAL BILIRUBIN 0.3 mg/dL (0.0-1.0); UREA NITROGEN, BLOOD 47 mg/dL (8-21)
[2022-10-29] MEDS: POTASSIUM CHLORIDE 20 MEQ/PKT PACKET PO SCH (08:43)
[2022-10-29 09:07] LABS: ALANINE AMINOTRANSFERASE 20 U/L (12-78)
[2022-10-29] MEDS ORDERED: NS 250 ML IV ONE (10:30)
[2022-10-29 11:32] VITALS: BP_SYST 102
[2022-10-29] MEDS: MUPIROCIN 2% TOPICAL OINTMENT 22 GM NS SCH (11:48)
--- NOTE | 2022-10-29 12:42 | NUR ---
FAMILY UPDATED PATIENTS SON ON PATIENTS STATUS, ANSWERED ALL QUESTIONS, SON VERBALIZED UNDERSTANDING.
[2022-10-29] MEDS: ERTAPENEM SODIUM 1 GM in NS 50 ML IV SCH (15:54)
[2022-10-29] MEDS ORDERED: PHENOL/ORAL ANESTHETIC 177 ML BOTTLE MM PRN (16:00)
[2022-10-29 16:40] VITALS: BP_SYST 104
[2022-10-29] MEDS: EPOETIN ALFA 10,000 UNITS/ML VIAL SUBCUT SCH (18:14)
[2022-10-29 20:30] VITALS: BP_SYST 112
[2022-10-29] MEDS ORDERED: [UNRECOGNIZED DRUG - OTHER] IV SCH ×8 (21:00)
[2022-10-29] MEDS ORDERED: TPN CENTRAL IV SCH ×8 (21:00)
[2022-10-29] MEDS ORDERED: NA PHOS IV SCH ×8 (21:00)
[2022-10-29] MEDS ORDERED: MAGNESIUM SULFATE IV SCH ×8 (21:00)
[2022-10-29] MEDS ORDERED: SODIUM CHLORIDE IV SCH ×8 (21:00)
[2022-10-29] MEDS: FAT EMULSIONS 250 ML IV SCH (22:03)
[2022-10-30 01:10] VITALS: BP_SYST 82
--- NOTE | 2022-10-30 01:24 | NUR ---
Bip pap HOB elevated Respirations Regular also unlabored 02 SAT 95 % SKIN DRY ALSO WARM CONTINUE to monitor / .
[2022-10-30] MEDS: LevALBUTEROL HCL 1.25 MG/0.5 ML *CONC.* VIAL.NEB (XOPENEX CONC.) INH SCH ×4 (01:29→19:57)
--- NOTE | 2022-10-30 04:32 | NUR ---
Hourly Rounding patient on Bi pap HOB elevated bed alarm on Reposition and turn on schedule kept clean also dry activity tolerated / .
[2022-10-30 06:17] LABS: BASOPHILS % (AUTO) 0.5 % (0.0-2.0); EOSINOPHILS # (AUTO) 0.1 K/uL (0.0-0.4); EOSINOPHILS % (AUTO) 0.8 % (0.0-4.0); HEMATOCRIT 28.9 % (36-48); HEMOGLOBIN 9.2 g/dL (12.0-16.0); LYMPHOCYTES # (AUTO) 0.8 K/uL (1.0-5.5); LYMPHOCYTES % (AUTO) 11.3 % (20.5-51.5); MEAN CORPUSCULAR HEMOGLOBIN 28 pg (27-31); MEAN CORPUSCULAR HGB CONC 32 % (32-36); MEAN CORPUSCULAR VOLUME 87 fL (79.0-98.0); MONOCYTES # (AUTO) 0.9 K/uL (0.0-1.0); MONOCYTES % (AUTO) 12.8 % (1.7-9.3); NEUTROPHILS # (AUTO) 5.2 K/uL (1.8-7.7); NEUTROPHILS % (AUTO) 74.6 % (40.0-70.0); PLATELET COUNT (AUTO) 209 K/uL (130-430); RED BLOOD CELL COUNT(AUTO) 3.32 MIL/uL (4.2-6.2); RED CELL DISTRIBUTION WIDTH 23.3 % (9.0-15.0)
[2022-10-30 06:48] LABS: ALANINE AMINOTRANSFERASE 16 U/L (12-78); ALBUMIN 1.6 g/dL (3.4-4.8); ANION GAP 3 (5-15); ASPARTATE AMINOTRANSFERASE 27 U/L (10-37); CALCIUM 8.5 mg/dL (8.4-11.0); CHLORIDE 99 mmol/L (98-107); CREATININE 0.57 mg/dL (0.55-1.30); GLUCOSE 101 mg/dL (70-99); PHOSPHORUS 4.2 mg/dL (2.7-4.5); TOTAL BILIRUBIN 0.2 mg/dL (0.0-1.0); UREA NITROGEN, BLOOD 50 mg/dL (8-21)
--- NOTE | 2022-10-30 07:35 | NUR ---
RT NOTE: 0735 Patient awake. Taken off of BiPAP at this time and placed on 3LPM nasal cannula. Tolerating change well. HR 103, RR 18, and SpO2 100%. BiPAP on standby. Addendum: 10/30/22 at 0806 by Barb Zafar RT Amended: Links added.
[2022-10-30] MEDS: METOPROLOL SUCCINATE 25 MG TAB.SR.24H (TOPROL XL) PO SCH (09:00)
[2022-10-30] MEDS: acetaZOLAMIDE 250 MG TABLET (DIAMOX) PO SCH (09:00)
[2022-10-30] MEDS: FUROSEMIDE 20 MG/2 ML VIAL IVP SCH ×2 (09:00→23:48)
[2022-10-30] MEDS: DILTIAZEM HCL 30 MG TABLET PO SCH ×3 (09:00→23:46)
[2022-10-30] MEDS: SPIRONOLACTONE 25 MG TABLET (ALDACTONE) PO SCH (09:00)
[2022-10-30] MEDS: SACUBITRIL/VALSARTAN 24 MG-26 MG 1 TABLET PO SCH ×2 (10:44→23:47)
[2022-10-30] MEDS: DOCUSATE SODIUM 100 MG CAPSULE PO SCH ×2 (10:44→23:45)
[2022-10-30] MEDS: APIXABAN 2.5 MG TABLET PO SCH ×2 (10:47→23:43)
[2022-10-30 11:26] VITALS: BP_SYST 90
--- NOTE | 2022-10-30 12:47 | NUR ---
DR NAN OLGUIN MD RE GI CONSULT FOR POSSIBLE PEG PLACEMENT, STATED HE HAS TO TALK TO PT'S DAUGHTER FIRST.
--- NOTE | 2022-10-30 14:15 | NUR ---
WOUND RE-EVALUATION: Wound Consult received from Dr. Nina. Thank you, Dr. Nina, for the consult. Patient received in a Clinton Bed with an Isoflex REINALDO mattress with low air loss therapy initiated, awake, alert, confused. Patient is unable to turn in bed independently. Grover Score is an 11. Past Medical History: Paroxysmal Atrial Fibrillation, CHF, Chronic Anemia, Chronic Kidney Disease. Presented to the Emergency Room with Acute Respiratory Failure, Hypertension, Septic Shock. Recent Labs: WBC 6.8, RBC 3.60, hemoglobin 9.8, hematocrit 32.4, BUN 33, creatinine 0.94, glucose 140, POC glucose 131, calcium 7.9, serum total protein 6.1, albumin 1.9. Microbiology: Body fluid culture results in progress. Stool OB results positive x2. MRSA screen results positive. Blood culture results x2 negative. Urine culture positive for E. coli (ESBL/MDRO). Intrinsic factors that delay wound healing: Paroxysmal Atrial Fibrillation, CHF, Chronic Anemia, Chronic Kidney Disease, severe Hypoalbuminemia. Extrinsic factors that delay wound healing: Immobility. Wound Assessment: 1. Left buttock: Stage II pressure ulcer, present on admission. Wound bed has 90% pink tissue, 10% red tissue. No odor, no drainage. Periwound intact. Wound measures 1.6 cm x 0.5 cm. Recommend: Cleanse wound with normal saline. Apply moisture barrier cream to wound and periwound. Apply Hydrogel to any portion of wound bed not covered by moisture barrier cream. Cover site with Sacral foam dressing. Perform wound care daily, and as needed for dressing soiling or dislodgment. 2. Right Buttocks: Dark discolored tissue with non-blanchable redness. Site has IAD with MASD. Open tissue has 100% red tissue. No odor, scant red drainage. Site is not soft, boggy, or warm. Recommend: Cover site with same Sacral foam dressing used in site 1. Offload site at all times. Reposition patient side to side only every 2 hours with 1 pillow underneath trunk and 1 pillow underneath pelvis (initiate turning by placing 5th pillow underneath left side for 2 hours, then place fifth pillow underneath right side for 2 hours, rotating sides every 2 hours). 3. Right Lower Extremity: Thigh has moderate, nonpitting edema. Extremity below knee has 4+ pitting edema. Negative for calor. Knee has blanchable light pink coloration (red coloration present on admission). 4. Left Lower Extremity: Thigh has moderate, nonpitting edema. Extremity below knee has 3+ pitting edema. Positive for calor. Recommend: Elevate, offload and float bilateral lower extremities with 1 pillow lengthwise under each extremity at all times. Elevate extremities above heart as tolerated. Also recommend: Reposition patient side to side only every 2 hours with 1 pillow underneath trunk and 1 pillow underneath pelvis (initiate turning by placing 5th pillow underneath left side for 2 hours, then place fifth pillow underneath right side for 2 hours, rotating sides every 2 hours). Off-load pressure areas with pillows for pressure re-distribution. Offload, elevate and float bilateral heels with 1 pillow lengthwise under each extremity at all times. Perform skin care and monitor skin integrity Q shift. Use moisture barrier cream on buttocks and other moisture susceptible areas QID and as needed for soiling. Maintain patient on a low air-loss mattress.
[2022-10-30] MEDS: ERTAPENEM SODIUM 1 GM in NS 50 ML IV SCH (15:00)
[2022-10-30 15:27] VITALS: BP_SYST 101
[2022-10-30] MEDS: ALBUMIN HUMAN 25% 50 ML IV SCH (17:42)
[2022-10-30 21:00] VITALS: BP_SYST 105
[2022-10-30] MEDS ORDERED: NA PHOS IV SCH ×8 (21:00)
[2022-10-30] MEDS ORDERED: SODIUM CHLORIDE IV SCH ×8 (21:00)
[2022-10-30] MEDS ORDERED: MAGNESIUM SULFATE IV SCH ×8 (21:00)
[2022-10-30] MEDS ORDERED: [UNRECOGNIZED DRUG - OTHER] IV SCH ×8 (21:00)
[2022-10-30] MEDS ORDERED: TPN CENTRAL IV SCH ×8 (21:00)
[2022-10-30] MEDS: FAT EMULSIONS 250 ML IV SCH (23:41)
[2022-10-30] MEDS: SENNOSIDES 8.6 MG TABLET PO SCH (23:46)
[2022-10-31] MEDS: ALBUMIN HUMAN 25% 50 ML IV SCH (00:04)
[2022-10-31 00:26] VITALS: BP_SYST 123
--- NOTE | 2022-10-31 03:10 | NUR ---
Reposition & Turning on two hour schedule off loading with pillows used comfort measures implemented no SOB noted patient on BI PAP activity tolerated continue to monitor / .
--- NOTE | 2022-10-31 05:32 | NUR ---
wound care implemented as ordered / linin change bed bath given also off loading with pillows used comfort measures activity tolerated / .
[2022-10-31 06:50] LABS: ALANINE AMINOTRANSFERASE 18 U/L (12-78); ANION GAP 0 (5-15); ASPARTATE AMINOTRANSFERASE 21 U/L (10-37); CALCIUM 8.4 mg/dL (8.4-11.0); CHLORIDE 100 mmol/L (98-107); CREATININE 0.66 mg/dL (0.55-1.30); GLUCOSE 105 mg/dL (70-99); PHOSPHORUS 3.6 mg/dL (2.7-4.5); TOTAL BILIRUBIN 0.2 mg/dL (0.0-1.0); UREA NITROGEN, BLOOD 50 mg/dL (8-21)
[2022-10-31] MEDS: LevALBUTEROL HCL 1.25 MG/0.5 ML *CONC.* VIAL.NEB (XOPENEX CONC.) INH SCH ×3 (07:11→20:13)
--- NOTE | 2022-10-31 07:30 | NUR ---
RT NOTE: 0730 Patient taken off BiPAP and placed on 3LPM nasal cannula. Tolerating well. No resp distress noted. BiPAP on standby. Addendum: 10/31/22 at 0804 by Barb Zafar RT Amended: Links added.
[2022-10-31 07:56] VITALS: BP_SYST 96
[2022-10-31] MEDS: SPIRONOLACTONE 25 MG TABLET (ALDACTONE) PO SCH (09:00)
[2022-10-31] MEDS: acetaZOLAMIDE 250 MG TABLET (DIAMOX) PO SCH (09:00)
[2022-10-31] MEDS: METOPROLOL SUCCINATE 25 MG TAB.SR.24H (TOPROL XL) PO SCH (09:00)
[2022-10-31] MEDS: DILTIAZEM HCL 30 MG TABLET PO SCH ×3 (09:00→21:00)
[2022-10-31] MEDS: FUROSEMIDE 20 MG/2 ML VIAL IVP SCH (09:00)
[2022-10-31] MEDS: DOCUSATE SODIUM 100 MG CAPSULE PO SCH ×2 (09:58→21:14)
[2022-10-31] MEDS: SACUBITRIL/VALSARTAN 24 MG-26 MG 1 TABLET PO SCH ×2 (09:59→21:25)
--- NOTE | 2022-10-31 11:13 | NUR ---
PER ATTENDING MD DR MONTANA, I WAS ORDERED TO CALL GI MD DR HOWARD TO GIVE THE PHONE NUMBER OF THE DAUGHTER, WHO IS THE DPOA RE: PEG PLACEMENT. RN SHI WAS INFORMED OF THE CONVERSATION. SHE SAID THAT THE DAUGHTER IS ON THE WAY TO THE HOSP. INFORMED CHARGE NURSE, JR.
[2022-10-31 13:07] VITALS: BP_SYST 102
--- NOTE | 2022-10-31 14:34 | NUR ---
Nutrition F/U Ticket Broker reviewed pts current EMR including diet Hx, physician notes, nursing notes, pertinent labs/meds/procedures, care trends, and care activity. Admission Dx Sepsis/Acute Respiratory Failure PMH 77 YOF who presented to the ER w/ ARF and septic shock. Pt started on BiPAP, IV fluids, Abx, and was admitted to the ICU. Pt is DNI/DNR. PMH: Paroxysmal Afib, CHF, chronic anemia, CKD, HTN I/O: 1460mL/2500mL (-1040mL) 10/30: Pts condition continues to deteriorate at a slow pace. Continue current mgmt, overall prognosis is poor. Still poor appetite. MD called daughter & agreed for GT placement. 10/30 Wound Consult: L buttock wound bed has 90% pink tissue, 10% red tissue; R buttock: dark discolored tissue w/ non-blanchable redness; RLE thigh has moderate, nonpitting edema, below knee has 4+ pitting edema; LLE thigh has moderate, nonpitting edema, below knee has 3+ pitting edema. Subjective Information Ticket Broker s/w pt at bedside she was alert but only nods when responding. Pt drank about 20% of Ensure during visit. S/w primary RN and she stated that GI MD Victoria visited pt this morning to discuss GT placement. RN said that pt refused, so the message was relayed to MD Nina to discuss further w/ the daughter. Per RN, the answer is still tentative. EMR showed ILE was still running, so DI checked in w/ RN regarding the order. She said she will D/C the order. Bedscale wt: 180#/82kg Current Diet Order/Nutrition Support Puree, NTL, Ensure HP TID, Prosource TID x 3 days, Demetris BID x 13 days Patient/Significant Other Unable to Verbalize Education Provided No Pertinent Medications Lopressor, Senna, Colace, Spironolactone, Diamox, MVI, Cardizem Pertinent Labs CO2 37H (trending up), BUN 50H (trending up), POC BG 105H (trending down), Ca 8.4L (trending up), STP 5.8L (trending down) Height (Feet) 5 feet Height (Inches) 6 inches Weight (Pounds) 154# (Stable since 10/18) Patient Weight 70kg Body Mass Index 24.9 kg/m2 %IBW 118% [place]/Adjusted Body Weight 130#/59kg Recent Weight Change No per RN screen Weight Status Overweight Last BM 10/31 Food Allergies Unable to assess Gastrointestinal Symptoms None Usual Diet At Home Regular per RN screen Skin Integrity Comment: Grover: 11 Wounds: Erythema on L right heel and denuded on posterior buttocks Edema: 3+ pitting edema to BLE and 2+ pitting BUE Current % PO Negligible, avg 16% x 18 meals Estimated Energy Expenditure (kcals/day) 2021-6949 kcal (30-35 kcal/kg CBW d/t RF and septic shock) Estimated Protein Required (g/day) 70-105 (1-1.5 g/kg CBW d/t CKD, septic shock, wounds) Estimated Fluid Required (L/day) Defer to MD (CKD) Problem/Etiology/Signs/Symptoms *MODIFIED Inadequate oral intake R/T decreased appetite AEB pt refusing to eat and avg 16% x 18 meals (*Ongoing). Increased energy and protein utilization R/T metabolic demands AEB estimated nutritional needs for wound healing and septic shock (*Ongoing). Altered nutrition-related lab values R/t renal dysfunction AEB high BUN/Cre [BUN high, Cre WNL] (*Ongoing). Expected Outcomes/Goals Monitor appetite and PO intake provides >50% estimated nutrient needs, nutrition-related labs trending WNL, improvements in skin integrity, BM q1-3 days. Dietitian Recommendations * Puree, NTL, Ensure TID, Demetris BID (ONS provides 1230 kcals and 65 g PRO per day). * Encourage good PO intakes. * Consider appetite stimulant (Megace) * Consider Nepro @ 50 mL/hr (goal rate) via GT: Provides: 2160 kcal, 97 g PRO, and 872 mL free water daily. Meets: 103% of lower est. kcal, and 92% of upper est. PRO. Defer to MD for free water flush d/t CHF and CKD. Follow Up High Risk: 2-3 days ANJALI, MPH, RD
--- NOTE | 2022-10-31 14:44 | NUR ---
Dietitian Recommendations * Puree, NTL, Ensure TID, Demetris BID (ONS provides 1230 kcals and 65 g PRO per day). * Encourage good PO intakes. * Consider appetite stimulant (Megace) * Consider Nepro @ 50 mL/hr (goal rate) via GT: Provides: 2160 kcal, 97 g PRO, and 872 mL free water daily. Meets: 103% of lower est. kcal, and 92% of upper est. PRO. Defer to MD for free water flush d/t CHF and CKD. Submitted for JN, DI by GS, MPH, RD Please see Nutrition F/U for more details
[2022-10-31] MEDS: ERTAPENEM SODIUM 1 GM in NS 50 ML IV SCH (15:00)
[2022-10-31] MEDS: EPOETIN ALFA 10,000 UNITS/ML VIAL SUBCUT SCH (17:07)
[2022-10-31 18:12] VITALS: BP_SYST 100
[2022-10-31 19:40] VITALS: BP_SYST 89
--- NOTE | 2022-10-31 20:32 | NUR ---
RT NOTES. PT STATED SHE WANTED TO BE PLACED ON BIPAP AFTER HER BREATHING TX. PLACED ON @2029. NO RESP. DISTRESS NOTED. PT TOLERATING WELL. WILL CONTINUE TO MONITOR.
[2022-10-31] MEDS: FUROSEMIDE 20 MG TABLET PO SCH (21:00)
[2022-10-31] MEDS: SENNOSIDES 8.6 MG TABLET PO SCH (21:14)
[2022-10-31] MEDS: MEGESTROL ACETATE 400 MG/10 ML UDC PO SCH (21:15)
--- NOTE | 2022-10-31 22:00 | NUR ---
CENTRAL LINE DRESSING CHANGE CENTRAL LINE DRESSING CHANGE COMPLETED AT THIS TIME PER STERILE PROTOCOL. PATIENT TOLERATED WELL.
--- NOTE | 2022-10-31 22:30 | NUR ---
RT NOTES. RN NOTIFIED ME THAT PT DIDN'T WANT TP BE ON THE BIPAP ANYMORE. RN TOOK OF BIPAP AND PLACE DBACK ON 3L. NO RESP. DISTRESS NOTED. WILL CONTINUE TO MONITOR
--- NOTE | 2022-10-31 23:00 | NUR ---
COMMUNICATION W/ Karlos SHERIFF. DR. TERRELL PAGED VIA EXCHANGE, HAS PAGED BACK. PATIENT'S LOW BLOOD PRESSURE (SBP TRENDING AROUND 85), MD HAS GIVEN ORDERS FOR 250 ML NS BOLUS ONE TIME, NOW. MD STATED TO RETAKE BLOOD PRESSURE AFTER TWO HOURS AND TO GIVE ANOTHER 250 ML BS BOLUS IF SBP<90. MD ALSO GAVE ORDER FOR MAINTENANCE IVF NS @50ML/HR. ALL ORDERS READ BACK AND VERIFIED.
[2022-11-01] VITALS: BP_SYST 92
[2022-11-01] MEDS: LevALBUTEROL HCL 1.25 MG/0.5 ML *CONC.* VIAL.NEB (XOPENEX CONC.) INH SCH ×4 (01:29→19:46)
[2022-11-01] MEDS: NACL 0.9% 1,000 ML IV SCH ×2 (01:30→08:23)
[2022-11-01] MEDS: NACL 0.9% 250 ML IV SCH ×2 (01:30→01:46)
[2022-11-01] MEDS ORDERED: NACL 0.9% 250 ML IV ONE (01:44)
[2022-11-01 06:23] LABS: BASOPHILS # (AUTO) 0.1 K/uL (0.0-0.2); BASOPHILS % (AUTO) 0.9 % (0.0-2.0); EOSINOPHILS # (AUTO) 0.1 K/uL (0.0-0.4); EOSINOPHILS % (AUTO) 0.9 % (0.0-4.0); HEMATOCRIT 25.1 % (36-48); LYMPHOCYTES % (AUTO) 13.4 % (20.5-51.5); MEAN CORPUSCULAR HEMOGLOBIN 27 pg (27-31); MEAN CORPUSCULAR HGB CONC 32 % (32-36); MEAN CORPUSCULAR VOLUME 86 fL (79.0-98.0); MONOCYTES # (AUTO) 0.8 K/uL (0.0-1.0); NEUTROPHILS # (AUTO) 5.2 K/uL (1.8-7.7); NEUTROPHILS % (AUTO) 73.8 % (40.0-70.0); PLATELET COUNT (AUTO) 227 K/uL (130-430); RED BLOOD CELL COUNT(AUTO) 2.93 MIL/uL (4.2-6.2); RED CELL DISTRIBUTION WIDTH 22.9 % (9.0-15.0); WHITE BLOOD COUNT (AUTO) 7.1 K/uL (4.8-10.8)
--- NOTE | 2022-11-01 06:39 | NUR ---
CLOSING NOTE PATIENT SLEPT WELL THROUGHOUT THE NIGHT. HER BLOOD PRESSURE REMAINED LOW, BUT PATIENT IS ASYMPTOMATIC, AND ALERT, SHE IS REFUSING IVF ORDERED BY HER MD. PATIENT REMAINED ON 2L NASAL CANNULA THROUGHOUT THE NIGHT, HER OXYGEN SATURATION REMAINED ABOVE 95%. SHE HAS BEEN TURNED A1OKNGS THROUGHOUT THE SHIFT. WILL CONTINUE TO MONITOR UNTIL REPORT IS GIVEN AT BEDSIDE TO AM NURSE.
[2022-11-01 06:50] LABS: ANION GAP 0 (5-15); CALCIUM 8.6 mg/dL (8.4-11.0); CHLORIDE 102 mmol/L (98-107); CREATININE 0.51 mg/dL (0.55-1.30); GLUCOSE 92 mg/dL (70-99); UREA NITROGEN, BLOOD 42 mg/dL (8-21)
[2022-11-01 08:00] VITALS: BP_SYST 90
--- NOTE | 2022-11-01 08:00 | NUR ---
AM NOTES RECEIVED PT IN BED. A/OX4. DENIES ANY PAIN OR ORTHER DISCOMFORT ON O2 4L NC SATURATION 94% . RES EVEN AND UNLABORED HOB ELEVATED. PT TURNED AND REPOSITIONED SAFETY AND FALL PRECAUTIONS IN PLACE. NOT IN ACUTE DISTRESS.
[2022-11-01] MEDS: acetaZOLAMIDE 250 MG TABLET (DIAMOX) PO SCH (08:22)
[2022-11-01] MEDS: MEGESTROL ACETATE 400 MG/10 ML UDC PO SCH ×2 (08:22→21:30)
[2022-11-01] MEDS: DOCUSATE SODIUM 100 MG CAPSULE PO SCH ×2 (08:22→21:31)
[2022-11-01] MEDS: SPIRONOLACTONE 25 MG TABLET (ALDACTONE) PO SCH (08:36)
[2022-11-01] MEDS: SACUBITRIL/VALSARTAN 24 MG-26 MG 1 TABLET PO SCH ×2 (08:37→21:35)
[2022-11-01] MEDS: DILTIAZEM HCL 30 MG TABLET PO SCH ×3 (08:37→21:00)
[2022-11-01] MEDS: FUROSEMIDE 20 MG TABLET PO SCH ×2 (08:37→21:00)
[2022-11-01] MEDS: METOPROLOL SUCCINATE 25 MG TAB.SR.24H (TOPROL XL) PO SCH (08:37)
--- NOTE | 2022-11-01 09:00 | NUR ---
SEEN BY DR TERRELL. IVF STARTED ORDERED. PT ATE 50%. ENCOURGED PO INTAKE. KEPT COMFORTABLE.
[2022-11-01] MEDS ORDERED: COMMUNICATION ORDER XX ONE (11:15)
[2022-11-01 11:36] VITALS: BP_SYST 105
--- NOTE | 2022-11-01 12:46 | NUR ---
RT NOTES per Case Mgmt's request Current settings for BIPAP: AVAPS rate 20, tidal volume 450, 30% O2.
--- NOTE | 2022-11-01 13:00 | NUR ---
PT STABLE NOT IN ACUTE DISTRESS PT FED BY KERRY ROOT 75% . PT TURNED AND REPOSITIONED. NOT IN ACUTE DISTRESS . KEPT COMFORTABLE. HOB ELEVATED. WILL CONTINUE TO MONITOR
--- NOTE | 2022-11-01 15:34 | NUR ---
pt stable not in acute distress. ivf infusing well. wound care done as ordered. repositioned with pillows hob elevated. needs attended. will continue to monitor
--- NOTE | 2022-11-01 16:30 | NUR ---
PHYSICAL THERAPY CO-SIGN The Physical Therapy Progress Notes documented by Licensed Clinical Social Worker have been reviewed. Reviewed/Co-Signed by: Erik Gracia Documentation Done by:TERRANCE SANDHU Addendum: 11/01/22 at 1630 by Erik Gracia PT Amended: Links added.
[2022-11-01 16:47] VITALS: BP_SYST 101
--- NOTE | 2022-11-01 17:09 | NUR ---
PT STABLE SEEN BY DR SINGER. NOT IN ACUTE DISTRESS. DENIES ANY PAIN OR ORTHER DICOMFORT. PAGED DR TERRELL TO NOTIFY US CHEST RESULT. WAITING FOR CALL BACK.
--- NOTE | 2022-11-01 19:30 | NUR ---
closing notes PT STABLE NOT IN ACUTE DISTRESS . . PT TURNED AND REPOSITIONED. NOT IN ACUTE DISTRESS . KEPT COMFORTABLE. HOB ELEVATED. REPORT GIVEN TO NIGHT NURSE
[2022-11-01 19:40] VITALS: BP_SYST 96
[2022-11-01] MEDS: SENNOSIDES 8.6 MG TABLET PO SCH (21:31)
[2022-11-02] VITALS (7 sets, daily range): BP systolic 86–126
[2022-11-02] MEDS: LevALBUTEROL HCL 1.25 MG/0.5 ML *CONC.* VIAL.NEB (XOPENEX CONC.) INH SCH ×4 (01:01→20:03)
--- NOTE | 2022-11-02 07:04 | NUR ---
CLOSING NOTE PATIENT SLEPT WELL THROUGHOUT THE NIGHT. HER SBP REMAINED AROUND 90'S, BUT PATIENT WAS ASYMPTOMATIC FOR HYPOTENSION. SHE REMAINS AND ALERT, SHE HAD A BETTER APPETITE DURING THE NIGHT, AND HAD SEVERAL BEVERAGES WELL APPLE SAUCE. PATIENT REMAINED ON 3-4L NASAL CANNULA THROUGHOUT THE NIGHT, HER OXYGEN SATURATION REMAINED ABOVE 95%. SHE HAS BEEN TURNED C2SDGDL THROUGHOUT THE SHIFT. WILL CONTINUE TO MONITOR UNTIL REPORT IS GIVEN AT BEDSIDE TO AM NURSE.
--- NOTE | 2022-11-02 08:06 | NUR ---
PHYSICAL THERAPY CO-SIGN The Physical Therapy Progress Notes documented by [employer] have been reviewed. Reviewed/Co-Signed by: Erik Gracia Documentation Done by:CAMELIA MOJICA Addendum: 11/02/22 at 0806 by Erik Gracia PT Amended: Links added.
--- NOTE | 2022-11-02 08:20 | NUR ---
INITIAL NOTE: Received Patient sitting in bed, awake, alert. A/O x4. No c/o pain at this time. No s/s of distress noted. PICC line noted to SARAHI. Lungs clear. Edema noted to bilateral feet. Elevated with heels offloaded. Bed in low, locked position. Bed alarm active. Call light and personal items within reach.
[2022-11-02] MEDS: acetaZOLAMIDE 250 MG TABLET (DIAMOX) PO SCH (09:00)
[2022-11-02] MEDS: DILTIAZEM HCL 30 MG TABLET PO SCH ×2 (09:00→15:00)
[2022-11-02] MEDS: SPIRONOLACTONE 25 MG TABLET (ALDACTONE) PO SCH (09:00)
[2022-11-02] MEDS: SACUBITRIL/VALSARTAN 24 MG-26 MG 1 TABLET PO SCH (09:00)
[2022-11-02] MEDS: MEGESTROL ACETATE 400 MG/10 ML UDC PO SCH (09:00)
[2022-11-02] MEDS: METOPROLOL SUCCINATE 25 MG TAB.SR.24H (TOPROL XL) PO SCH (09:00)
[2022-11-02] MEDS: DOCUSATE SODIUM 100 MG CAPSULE PO SCH (09:00)
[2022-11-02] MEDS ORDERED: APIXABAN 2.5 MG TABLET PO SCH (09:00)
[2022-11-02] MEDS: FUROSEMIDE 20 MG TABLET PO SCH (09:00)
--- NOTE | 2022-11-02 10:00 | NUR ---
All due AM medications were administered as ordered. BP medications, Lasix & Cardizem held D/T low blood pressure. MD made aware. Patient refused Colace. Performed wound care to right and left buttocks. New clean dressings applied to buttocks & left heel. Patient tolerated well. Patient stated pain 2/10, refused PRN meds stating pain is tolerable. No s/s of acute distress noted. Patient clean and dry. Repositioned with pillows. BLE elevated with pillows heels offloaded. Patient resting comfortably. Bed in low position, locked, alarm activated. Call light and personal items within reach.
--- NOTE | 2022-11-02 10:45 | NUR ---
Received phone call from a man stating he is Patient's son, Eugene, requesting information regarding Patient status & care. Caller is not listed as a contact in Patient's chart. Verified with Patient whether she wants information about her care to be released to this person. Patient shook head side to side & stated that no, she does not give permission. Nurse stated, "You do not want us to give information to your son, Eugene. Is that correct?" Patient nodded head. Caller was told that d/t HIPAA patient privacy laws, we cannot release information to anyone not authorized. Nurse stated that caller is welcome to call Patient directly and she can give him information if she chooses. Caller became agitated, stating he has been in contact during the duration of her care & requested to speak to a type photography supervisor. Caller hung up before line was picked up. Situation was reviewed with a second nurse. Charge nurse was informed.
--- NOTE | 2022-11-02 11:37 | NUR ---
Spoke to daughter Ck. Daughter stated brother Eugene Arriaza can receive updates and give consent if needed. Patient's son contact information: Eugene Arriaza, phone number Earlier Eugene Arriaza called and requested an update on patient, his mom. Son Eugene was not on contact list. Verified with patient if nurse can give Eugene an update, patient shook her head no, verified by a second nurse. Eugene Arriaza was informed that due [facility] privacy laws that protect patient's medical information to be released without permission, nurse was unable to disclose any information to him. Son was upset, requested to speak to custodial supervisor, and hung up shortly after. After speaking to daughter kC, who is on contact list, nurse called Eugene Arriaza to give him an update and inform him that he is now on the contact list and authorized to receive updates. Re-explained the situation to him for why access to info/ update on patient was denied earlier. Son got upset and stated, "IF she said NO, then I don't want an update," and proceeded to hang up. Addendum: 11/02/22 at 1943 by Ana Rosa Ceron LVN Spoke to daughter Soledad. Daughter stated brother Eugene Arriaza can receive updates and give consent if needed. Patient's son contact information: Eugene Arriaza, phone number Earlier Eugene Arriaza called and requested an update on patient, his mom. Son Eugene was not on contact list. Verified with patient if nurse can give Eugene an update, patient shook her head no, verified by a second nurse. Eugene Arriaza was informed that due [facility] privacy laws that protect patient's medical information to be released without permission, nurse was unable to disclose any information to him. Son was upset, requested to speak to custodial supervisor, and hung up shortly after. After speaking to daughter Soledad, who is on contact list, nurse called Eugene Arriaza to give him an update and inform him that he is now on the contact list and authorized to receive updates. Re-explained the situation to him for why access to info/ update on patient was denied earlier. Son got upset and stated, "IF she said NO, then I don't want an update," and proceeded to hang up.
--- NOTE | 2022-11-02 12:00 | NUR ---
Patient resting in position of comfort, eyes closed. No s/s of acute distress noted. No signs of pain noted according to Momin Newman scale. Bed low, locked & alarmed. Call light & personal items within reach.
--- NOTE | 2022-11-02 14:00 | NUR ---
Patient sleeping. Was placed onto BiPAP by RT department. No signs of distress noted. Call light within reach. Bed low, locked, alarm active.
--- NOTE | 2022-11-02 15:31 | NUR ---
PHYSICAL THERAPY CO-SIGN The Physical Therapy Progress Notes documented by Gambling Box Person have been reviewed. Reviewed/Co-Signed by: Erik Gracia Documentation Done by:TERRANCE SANDHU Addendum: 11/02/22 at 1531 by Erik Gracia PT Amended: Links added.
[2022-11-02] MEDS: ACETAMINOPHEN 325 MG TABLET PO PRN (15:33)
--- NOTE | 2022-11-02 16:00 | NUR ---
Nutrition F/U RD reviewed pts current EMR including diet Hx, physician notes, nursing notes, pertinent labs/meds/procedures, care trends, and care activity. Admission Dx Sepsis/Acute Respiratory Failure PMH 77 YOF who presented to the ER w/ ARF and septic shock. Pt started on BiPAP, IV fluids, Abx, and was admitted to the ICU. Pt is DNI/DNR. PMH: Paroxysmal Afib, CHF, chronic anemia, CKD, HTN 10/30: Pts condition continues to deteriorate at a slow pace. Continue current mgmt, overall prognosis is poor. Still poor appetite. called daughter & agreed for GT placement. 10/30 Wound Consult: L buttock wound bed has 90% pink tissue, 10% red tissue; R buttock: dark discolored tissue w/ non-blanchable redness; RLE thigh has moderate, nonpitting edema, below knee has 4+ pitting edema; LLE thigh has moderate, nonpitting edema, below knee has 3+ pitting edema. Subjective Information: RD visited pt at bedside this afternoon. Pt was receiving breathing treatment. She could not verbally respond d/t BiPAP machine, but nodded when asked if she was eating OK. EMR review revealed pt continues w/ poor PO intakes; LBM x1 10/31 (no BM documented in past 2 days); Megace appetite stimulant was ordered; pt continues to refuse GT placement. Bedscale wt: 180#/82kg Current Diet Order/Nutrition Support Puree, NTL, Ensure HP TID, Prosource TID x5 days, Demetris BID x15 days Patient/Significant Other Unable to Verbalize Height (Feet) 5 feet Height (Inches) 6 inches Weight (Pounds) 154# (Stable since 10/18) Patient Weight 70kg Body Mass Index 24.9 kg/m2 %IBW 118% [place]/Adjusted Body Weight 130#/59kg Recent Weight Change No per RN screen Weight Status Overweight Last BM 10/31 Food Allergies Unable to assess Gastrointestinal Symptoms None Usual Diet At Home Regular per RN screen Skin Integrity Comment: Grover: 14 Wounds: Erythema on L right heel and denuded on posterior buttocks Edema: 3+ pitting to BLE and 1+ BUE Current % PO 28% average x3 meal records (slight improvement, but still poor) Estimated Energy Expenditure (kcals/day) 0571-8299 kcal (30-35 kcal/kg CBW d/t RF and septic shock) Estimated Protein Required (g/day) 70-105 (1-1.5 g/kg CBW d/t CKD, septic shock, wounds) Estimated Fluid Required (L/day) Defer to MD (CKD) Problem/Etiology/Signs/Symptoms *MODIFIED Inadequate oral intake R/T decreased appetite AEB pt refusing to eat and avg 16% x 18 meals (*Ongoing). Increased energy and protein utilization R/T metabolic demands AEB estimated nutritional needs for wound healing and septic shock (*Ongoing). Altered nutrition-related lab values R/t renal dysfunction AEB high BUN/Cre [BUN high, Cre WNL] (*Ongoing). Expected Outcomes/Goals Monitor appetite and PO intake provides >50% estimated nutrient needs, nutrition-related labs trending WNL, improvements in skin integrity, BM q1-3 days. Dietitian Recommendations * Puree, NTL, Ensure TID, Demetris BID (ONS provides 1230 kcals and 65 g PRO per day). * Encourage good PO intakes. * Continue appetite stimulant (Megace) Follow Up High Risk: 2-3 days
--- NOTE | 2022-11-02 16:00 | NUR ---
Patient c/o pain with visible signs of discomfort noted. 4/10 on Momin Newman scale. Daughter at bedside. Administered PRN Tylenol 650 mg per order. Provided ice packs per Patient daughter request. Provided bedding change. Patient repositioned with pillows, heels offloaded. No s/s of acute distress noted.
--- NOTE | 2022-11-02 16:10 | NUR ---
Dietitian Recommendations * Puree, NTL, Ensure TID, Demetris BID (ONS provides 1230 kcals and 65 g PRO per day). * Encourage good PO intakes. * Continue appetite stimulant (Megace) LP, MS, RD Please refer to Nutrition F/U for details.
[2022-11-02] MEDS: EPOETIN ALFA 10,000 UNITS/ML VIAL SUBCUT SCH (16:54)
[2022-11-02] MEDS: NACL 0.9% 1,000 ML IV SCH (16:56)
--- NOTE | 2022-11-02 18:45 | NUR ---
CLOSING NOTE: Patient is resting comfortably in bed. No signs of distress noted. Patient denies pain. Positioned with pillows, heels offloaded. IV patent & flushing well. No signs of infiltration, no pain. Bed in low, locked position. Bed alarm active. Call light & personal items within reach. Addendum: 11/02/22 at 1959 by Denise Case LVN CLOSING NOTE: Patient is resting comfortably in bed. Patient shows no signs of pain. No signs of distress noted. Breathing shallow but unlabored. O2 sat 94%. Positioned with pillows, heels offloaded. IV patent & flushing well. No signs of infiltration, no pain. Bed in low, locked position. Bed alarm active. Call light & personal items within reach.
--- NOTE | 2022-11-02 18:45 | NUR ---
PATIENT IS RESTING, EYES CLOSED, AROUSED TO NAME AND TOUCH. NO SS OF ACUTE RESPIRATORY DISTRESS NOTED. ON 4 L O2 VIA NC. BREATHING SHALLOW BUT NONLABORED. SPO2 AT 95-97%. HEART RATE ON MONITOR WAS 110'S BPM. NO SOB NOTED. PATIENT DENIED PAIN. NO FACIAL GRIMACE NOTED. BP HAS BEEN ON THE LOWER SIDE (90'S) THROUGHOUT SHIFT. MD MADE AWARE. ALL BP AND LASIX MEDICATION HELD THRU SHIFT. PATIENT STABLE AT THIS TIME. ALL NEEDS MET. BED IS LOCKED, AND AT LOWEST POSITION. CALL LIGHT WITHIN REACH.
--- NOTE | 2022-11-02 19:49 | NUR ---
patient became nonresponsive, rapid response called, turned into code blue called and spoke to Soledad, daughter. daughter made aware of situation. Confirmed with daughter, patient to remain modified code. ONLY ACLS DRUGS AND BIPAP. NO CPR, NO INTUBATION. SECOND NURSE VERIFIED. PAGED DR. MON[place], WAITING FOR CALL BACK
--- NOTE | 2022-11-02 19:52 | NUR ---
Patient transferred to ICU from [facility] after code blue. Connected to cardiac monitor technician, vital signs recorded. RT at bedside, patient started on AVAPS mode with settings rate 20, TV 450, FIO2 100%. Patient non responsive to stimuli. Pupils fixed and dilated. Pulses present. BP 152/66, HR 161. Epinephrine drip on hold which was ordered by ER MD due to elevated BP.
[2022-11-02] MEDS ORDERED: EPINEPHrine HCL 10 MG in NS 240 ML IV PRN ×2 (20:00→20:45)
--- NOTE | 2022-11-02 20:03 | NUR ---
SPOKE TO DR. MONTANA. MADE AWARE OF PATIENT'S CURRENT CONDITION. PATIENT WAS SENT TO ICU. NO NEW ORDERS.
--- NOTE | 2022-11-02 20:30 | NUR ---
Patient's heart rate decreasing steadily to 98 bpm, BP not reading. Epinephrine drip started as per previous order at 0.1 mcg/k/min.
--- NOTE | 2022-11-02 20:40 | NUR ---
Episode of emesis moderate amount. Patient's head of bed elevated and orally suctioned. AVAPS stopped and patient was placed on Non rebreather mask. RT aware.
[2022-11-02] MEDS ORDERED: NOREPINEPHRINE 4 MG/4 ML VIAL IV ONE (20:46)
--- NOTE | 2022-11-02 20:50 | NUR ---
Family arrived to hospital. Family reported wishes to change code status from modified to full DNR. Family understand and verbalized that this decision will imply that no longer a code blue will be called in the case of cardiac or respiratory arrest and no ACLS medications will be administered, as well as no intubation, chest compressions or defibrillation will be performed. DNR effective immediately after required documentation was signed by this nurse and Mariaelena NIEVES charge. Dr Nina notified and agreed. Family at bedside requesting all treatments to stop.
--- NOTE | 2022-11-02 21:35 | NUR ---
DR. NAN KUHN MADE AWARE OF PT CURRENT CONDITION. SON ROSHNI AND DAUGHTER TORIBIO ARE AT BEDSIDE AND REQUESTING THE PT BE MADE A FULL DNR AND ALL TREATMENTS TO BE STOPPED. RECEIVED T/O FROM DR. MONTANA TO MAKE PT FULL DNR AND COMFORT MEASURES ONLY AT THIS TIME. WILL CARRY OUT ORDERED.
[2022-11-02] MEDS ORDERED: ATROPINE SULFATE 1 MG/10 ML SYRINGE IVP ONE (21:48)
--- NOTE | 2022-11-02 21:49 | NUR ---
Assessment and verification of performed by this RN and Mariaelena rn discharge. Upon examination of patient, it is noted that no carotid and peripheral pulses are palpable. Dopler was also used for verification of absence of pulse. No heart tones noted upon auscultation. No blood pressure or Heart rate noted in compliance monitor. Pupils are fixed dilated and non reactive to light. no response to tactile stimuli and no respirations noted for full minute. Patient pronounced at this time [id number]. Family made aware of patient's passing. Dr Nina PCP will be notified.
--- NOTE | 2022-11-02 22:25 | NUR ---
NOTIFICATION OF EXPIRATION 2219 - DR. MONTANA, SPOKE WITH JASPER AT THE EXCHANGE. 2201 - DR. JOSE, SPOKE WITH GLORY AT THE EXCHANGE. 2201 - DR. GRAY, SPOKE WITH GLORY AT THE EXCHANGE. 2201 - DR. TERRELL, SPOKE WITH GLORY AT THE EXCHANGE. 2201 - DR. CHAVES, SPOKE WITH GLORY AT THE EXCHANGE.
--- NOTE | 2022-11-02 22:40 | NUR ---
Spoke to [employer] sales representative Debo Cha Referral number [id number]. Patient is eligible for tissue donation. Next of kin will be notified by [employer].
== END 2022-11-02 21:49 | DRG 871 ==
LOC: SED 16:31 → SIC 19:38 → STU 10-27 10:26 → SIC 11-02 19:50
PROVIDERS: ADMIT Family Medicine; ATTEND Family Medicine
PROC: 5A09357 Assistance with Respiratory Ventilation, Less than 24 Consecutive Hours, Continuous Positive Airway Pressure (ICD-10-PCS; 2022-10-16)
PROC: 5A09357 Assistance with Respiratory Ventilation, Less than 24 Consecutive Hours, Continuous Positive Airway Pressure (ICD-10-PCS; 2022-10-17)
PROC: 5A09357 Assistance with Respiratory Ventilation, Less than 24 Consecutive Hours, Continuous Positive Airway Pressure (ICD-10-PCS; 2022-10-18)
PROC: 05HY33Z Insertion of Infusion Device into Upper Vein, Percutaneous Approach (ICD-10-PCS; 2022-10-18)
PROC: 5A09357 Assistance with Respiratory Ventilation, Less than 24 Consecutive Hours, Continuous Positive Airway Pressure (ICD-10-PCS; 2022-10-19)
PROC: 5A09357 Assistance with Respiratory Ventilation, Less than 24 Consecutive Hours, Continuous Positive Airway Pressure (ICD-10-PCS; 2022-10-20)
PROC: 5A09357 Assistance with Respiratory Ventilation, Less than 24 Consecutive Hours, Continuous Positive Airway Pressure (ICD-10-PCS; 2022-10-21)
PROC: 5A09357 Assistance with Respiratory Ventilation, Less than 24 Consecutive Hours, Continuous Positive Airway Pressure (ICD-10-PCS; 2022-10-22)
PROC: 0W9B3ZZ Drainage of Left Pleural Cavity, Percutaneous Approach (ICD-10-PCS; principal; 2022-10-23)
PROC: 5A09357 Assistance with Respiratory Ventilation, Less than 24 Consecutive Hours, Continuous Positive Airway Pressure (ICD-10-PCS; 2022-10-23)
PROC: 5A09357 Assistance with Respiratory Ventilation, Less than 24 Consecutive Hours, Continuous Positive Airway Pressure (ICD-10-PCS; 2022-10-24)
PROC: 5A09357 Assistance with Respiratory Ventilation, Less than 24 Consecutive Hours, Continuous Positive Airway Pressure (ICD-10-PCS; 2022-10-25)
PROC: 5A09357 Assistance with Respiratory Ventilation, Less than 24 Consecutive Hours, Continuous Positive Airway Pressure (ICD-10-PCS; 2022-10-26)
PROC: 5A09357 Assistance with Respiratory Ventilation, Less than 24 Consecutive Hours, Continuous Positive Airway Pressure (ICD-10-PCS; 2022-10-27)
PROC: 5A09357 Assistance with Respiratory Ventilation, Less than 24 Consecutive Hours, Continuous Positive Airway Pressure (ICD-10-PCS; 2022-10-29)
PROC: 5A09357 Assistance with Respiratory Ventilation, Less than 24 Consecutive Hours, Continuous Positive Airway Pressure (ICD-10-PCS; 2022-10-30)
PROC: 5A09357 Assistance with Respiratory Ventilation, Less than 24 Consecutive Hours, Continuous Positive Airway Pressure (ICD-10-PCS; 2022-10-31)
PROC: 5A09357 Assistance with Respiratory Ventilation, Less than 24 Consecutive Hours, Continuous Positive Airway Pressure (ICD-10-PCS; 2022-11-02)
DX: A41.9 Sepsis, unspecified organism (principal); E43 Unspecified severe protein-calorie malnutrition; J18.9 Pneumonia, unspecified organism; R65.21 Severe sepsis with septic shock; J96.21 Acute and chronic respiratory failure with hypoxia; J96.22 Acute and chronic respiratory failure with hypercapnia; N17.9 Acute kidney failure, unspecified; N39.0 Urinary tract infection, site not specified; I13.0 Hypertensive heart and chronic kidney disease with heart failure and stage 1 through stage 4 chronic kidney disease, or unspecified chronic kidney disease; I50.42 Chronic combined systolic (congestive) and diastolic (congestive) heart failure; E87.29 Other acidosis; L03.90 Cellulitis, unspecified; I46.9 Cardiac arrest, cause unspecified; Z66 Do not resuscitate; I48.0 Paroxysmal atrial fibrillation; D63.1 Anemia in chronic kidney disease; I27.20 Pulmonary hypertension, unspecified; E86.0 Dehydration; R13.10 Dysphagia, unspecified; Z20.822 Contact with and (suspected) exposure to COVID-19; I36.1 Nonrheumatic tricuspid (valve) insufficiency; I34.0 Nonrheumatic mitral (valve) insufficiency; N18.9 Chronic kidney disease, unspecified; I73.9 Peripheral vascular disease, unspecified; Z74.01 Bed confinement status; Z68.24 Body mass index [BMI] 24.0-24.9, adult; Z87.891 Personal history of nicotine dependence; Z79.01 Long term (current) use of anticoagulants
CPT/HCPCS: 32555; 36415; 36600; 70450-TC; 71045; 71250-TC; 76376; 76604; 80048; 80053; 81000; 82272; 82803-TC; 82947; 82962; 83605; 83735; 83880; 84100; 84157; 84443; 84478; 84484; 85007; 85025; 85027; 85610-TC; 85651-TC; 85730-TC; 86480; 87040; 87070-TC; 87081; 87086; 87101; 87116; 88108; 89051-TC; 89060-TC; 92610-GN; 93005; 93306; 94640; 94660; 94760; 96365; 96375; 97110-GP; 97112-GP; 97163-GP; 97530-GP; 99291; G0378; J0461; J0692; J0885; J1335; J1940; J2270; J2543; J3370; J3475; J3480; J3490; J7050; J7060; J7131; J7612; P9046